=== PATIENT | female | born 1960 | race Caucasian/White ===

== ENCOUNTER → 2018-05-21 07:12 | Outpatient (CLI) | payer OTHER, SELFPAY ==
[2018-05-21 10:00] LABS: Absolute Lymphocyte Count 2.98 X10^3/ul (0.83-4.51); Absolute Neutrophil Count 2.7 X10^3/uL (2.0-7.7); Basophil# 0.04 X10^3/uL; Basophil% 0.6 % (0-1); Eosinophil# 0.26 X10^3/uL; Hemoglobin 14.3 g/dl (12.0-15.0); Lymphocyte # 2.98 X10^3/ul (4.0); Lymphocyte % 45.6 % (19-41); Mean Corp Hgb Conc 33.3 g/gl (32-36); Mean Corpuscular Hgb 30.2 pg (27.0-32.0); Mean Corpuscular Volume 90.7 fL (81-99); Mean Platelet Vol. 9.5 fl (6.2-12.0); Monocyte# 0.53 X10^3/uL; Monocyte% 8.1 % (0-10); Neutrophil # 2.73 X10^3/uL (2.7-7.7); Neutrophil % 41.7 % (47-70); POSITIVE COUNT NO; POSITIVE DIFFERENTIAL NO; POSITIVE MORPHOLOGY NO; Platelet Count 250 K/mm3 (150-450); RBC Distribution Width CV 12.7 % (11.6-14.6); RBC Distribution Width SD 42.1 fl (35.1-43.9); Red Blood Count 4.74 M/mm3 (4.2-5.4); White Blood Count 6.5 K/mm3 (4.4-11.0)
[2018-05-21 10:29] LABS: ALB/GLOB Ratio 0.8 RATIO (0.9-2.4); AST(SGOT) 21 U/L (15-37); Alanine Aminotransfer ALT/SGPT 28 U/L (13-56); Albumin, Serum 3.3 g/dL (3.2-5.0); Alkaline Phosphatase 42 U/L (45-117); Anion Gap 11 (5-15); BUN 17 mg/dL (7-18); Calcium,Total 9.1 mg/dL (8.5-10.1); Chloride 102 mmol/L (98-107); Cholesterol 182 mg/dL (200); Creatinine, Serum 0.95 mg/dL (0.55-1.02); EST Glomerular Filtration Rate 65 mL/min (>60); Est Glom Filt Rate - Afr Amer 79 mL/min (>60); Globulin 4.1 g/dL (2.2-4.2); Glucose 106 mg/dL (74-106); High Density Lipoprotein 36 mg/dL; Potassium 3.6 mmol/L (3.5-5.1); Protein, Total 7.4 g/dL (6.4-8.2); Sodium Level 140 mmol/L (136-145); Thyroid Stim Hormone (TSH) 2.51 uIU/mL (0.358-3.74); Triglycerides 277 mg/dL; Very Low Density Lipoprotein 55 mg/dL (5-40)
[2018-05-21 10:40] LABS: Microalbumin:Creatinine Ratio 8.7 mg/g CRE (<30 mg/g CRE)
[2018-05-21 12:44] LABS: Vitamin B12 512 pg/mL (211-911); Vitamin D,25 Hydroxy 45.7 ng/mL (29.95-100.01)
== END ==
PROVIDERS: Family Provider Family Medicine; PCP Family Medicine; Visit Provider Family Medicine
DX: E11.9 Type 2 diabetes mellitus without complications (principal); I10 Essential (primary) hypertension; E55.9 Vitamin D deficiency, unspecified; R53.83 Other fatigue
CPT/HCPCS: 36415; 80053; 80061; 82043; 82306; 82570; 82607; 83036; 84443; 85025

== ENCOUNTER → 2019-02-01 12:24 | Outpatient (CLI) | payer OTHER, SELFPAY ==
[2019-02-01 11:33] VITALS: BMI 35.6
--- NOTE | 2019-02-01 13:04 | RAD_ITS ---
STUDY: X-RAY - LEFT FOOT CLINICAL: Female, 59 years old. Pain in the heel. TECHNIQUE: 3 view(s) of the foot. COMPARISON: None. FINDINGS: Normal talus, calcaneus, and tarsal bones. Normal visualized subtalar, talonavicular, calcaneocuboid, tarsal and tarsometatarsal articulations. Normal metatarsi. Normal metatarsophalangeal joint of the great toe. Normal tibial and fibular sesamoid bones. Normal interphalangeal joint of the great toe. Normal phalanges of the great toe. Normal second through fifth metatarsophalangeal joints. Normal interphalangeal joints and phalanges of the lesser toes. The soft tissue structures are unremarkable. There is no demonstrated fracture. RAD/Foot min 3 Views IMPRESSION: Normal x-ray examination of the foot. No calcaneal spur. Electronically Signed: Maxx Nunez MD at 15:45 EDT , Service support ,
--- NOTE | 2019-02-01 13:48 | BI_ITS ---
MAMMOGRAPHY - BILATERAL SCREENING 3-D DRE SYNTHESIS REASON FOR EXAM: Female, 59 years old. Bilateral Screening 3-D tomosynthesis PERTINENT HISTORY: No significant family history. TECHNIQUE: 2-D mammograms and 3-D Dre synthesis of the breast (s) were performed. CAD was performed. COMPARISON: September 16, 2017, August 29, 2016 FINDINGS: The breast composition is almost entirely fat. Scattered benign calcifications are stable. No dense spiculated masses or suspicious microcalcifications are identified. No architectural distortion is identified. There is no skin thickening or retraction. There has been no significant change since the prior study. BI/SCREENING MAMM (CAD), BILAT IMPRESSION: No mammographic signs of malignancy. Routine yearly mammograms recommended. ASSESSMENT CATEGORY: BIRADS Category 2: Benign. A letter regarding these results will be sent to the patient by the facility within 30 days. FOLLOW UP RECOMMENDATION: Yearly follow up mammogram recommended. (A) Approximately 10% of breast cancers are not detected by mammography. A normal mammogram should not delay biopsy of a clinically suspicious abnormality. Electronically Signed: Hunter Cabrera MD at 12:41 EDT , Service support ,
[2019-02-07 03:06] LABS: Banana <0.10 kU/L (Class 0); Celery <0.10 kU/L (Class 0); Cheddar Cheese <0.10 kU/L (Class 0); Lettuce <0.10 kU/L (Class 0); Peach <0.10 kU/L (Class 0)
[2019-02-07 11:09] LABS: Lactalbumin, Alpha <0.10 kU/L (Class 0); Turkey <0.10 kU/L (Class 0)
[2019-02-09 17:38] LABS: Almond <0.10 kU/L (Class 0); Barley, Whole Grain <0.10 kU/L (Class 0); Beef <0.10 kU/L (Class 0); Carrot <0.10 kU/L (Class 0); Casein <0.10 kU/L (Class 0); Cashew <0.10 kU/L (Class 0); Chicken <0.10 kU/L (Class 0); Chocolate <0.10 kU/L (Class 0); Clam <0.10 kU/L (Class 0); Codfish <0.10 kU/L (Class 0); Corn <0.10 kU/L (Class 0); Crab <0.10 kU/L (Class 0); Egg, White <0.10 kU/L (Class 0); Egg, Whole <0.10 kU/L (Class 0); Egg, Yolk <0.10 kU/L (Class 0); Garlic <0.10 kU/L (Class 0); Gluten <0.10 kU/L (Class 0); Hazelnut/Filbert <0.10 kU/L (Class 0); Lobster <0.10 kU/L (Class 0); Milk (Cow) <0.10 kU/L (Class 0); Oat <0.10 kU/L (Class 0); Onion <0.10 kU/L (Class 0); Orange <0.10 kU/L (Class 0); Pea <0.10 kU/L (Class 0); Pecan <0.10 kU/L (Class 0); Pork <0.10 kU/L (Class 0); Potato, White <0.10 kU/L (Class 0); Rice <0.10 kU/L (Class 0); Rye <0.10 kU/L (Class 0); Salmon <0.10 kU/L (Class 0); Shrimp <0.10 kU/L (Class 0); Soybean <0.10 kU/L (Class 0); Strawberry <0.10 kU/L (Class 0); Tomato <0.10 kU/L (Class 0); Tuna <0.10 kU/L (Class 0); Walnut, (Food) <0.10 kU/L (Class 0); Wheat <0.10 kU/L (Class 0); Yeast <0.10 kU/L (Class 0)
[2019-02-11 17:09] LABS: Apple <0.10 kU/L (Class 0); Peanut <0.10 kU/L (Class 0)
== END ==
PROVIDERS: Family Provider Family Medicine; PCP Family Medicine; Referring Provider Obstetrics & Gynecology; Visit Provider Obstetrics & Gynecology
DX: Z12.31 Encounter for screening mammogram for malignant neoplasm of breast (principal); Z91.018 Allergy to other foods; M79.673 Pain in unspecified foot
CPT/HCPCS: 36415; 73630; 77063; 77067; 86003

== ENCOUNTER → 2020-03-27 16:02 | Outpatient (CLI) | payer OTHER, SELFPAY ==
[2019-02-01 11:33] VITALS: BMI 35.6
[2020-03-27 17:29] LABS: Absolute Lymphocyte Count 3.67 X10^3/uL (0.83-4.51); Absolute Neutrophil Count 2.8 X10^3/uL (2.0-7.7); Basophil# 0.07 X10^3/uL; Basophil% 0.9 % (0-1); Eosinophil# 0.22 X10^3/uL; Eosinophils% 2.9 % (0-5); Hematocrit 41.4 % (37-47); Hemoglobin A1c 7.2 % (4.2-6.3); Lymphocyte # 3.67 X10^3/ul (4.0); Lymphocyte % 48.1 % (19-41); Mean Corp Hgb Conc 33.8 g/dL (32-36); Mean Corpuscular Hgb 30.3 pg (27.0-32.0); Mean Corpuscular Volume 89.6 fL (81-99); Mean Platelet Vol. 10.5 fl (6.2-12.0); Monocyte# 0.83 X10^3/uL; Monocyte% 10.9 % (0-10); NRBC Flagged by Analyzer 0 % (0-5); Neutrophil # 2.81 X10^3/uL (2.7-7.7); Neutrophil % 36.8 % (47-70); Platelet Count 234 K/mm3 (150-450); RBC Distribution Width CV 12.7 % (11.6-14.6); RBC Distribution Width SD 41.1 fl (35.1-43.9); Red Blood Count 4.62 M/mm3 (4.2-5.4); White Blood Count 7.6 K/mm3 (4.4-11.0)
[2020-03-27 18:20] LABS: Vitamin D,25 Hydroxy 65.9 ng/mL
[2020-03-27 18:34] LABS: ALB/GLOB Ratio 0.9 RATIO (0.9-2.4); AST(SGOT) 21 U/L (15-37); Alanine Aminotransfer ALT/SGPT 35 U/L (13-56); Albumin, Serum 3.5 g/dL (3.2-5.0); Alkaline Phosphatase 45 U/L (45-117); Anion Gap 9 (5-15); BUN 22 mg/dL (7-18); BUN/Creat Ratio 19.3 RATIO (10-20); Calcium,Total 9.7 mg/dL (8.5-10.1); Chloride 100 mmol/L (98-107); Creatinine, Serum 1.14 mg/dL (0.55-1.02); EST Glomerular Filtration Rate 52 mL/min (>60); Est Glom Filt Rate - Afr Amer 63 mL/min (>60); Globulin 4.1 g/dL (2.2-4.2); Glucose 152 mg/dL (74-106); Potassium 3.5 mmol/L (3.5-5.1); Protein, Total 7.6 g/dL (6.4-8.2); Sodium Level 137 mmol/L (136-145)
[2020-03-30 00:41] LABS: SAR-COV-2 IGG ANTIBODY Negative (Negative)
== END ==
PROVIDERS: PCP Family Medicine; Visit Provider Family Medicine
DX: Z00.00 Encounter for general adult medical examination without abnormal findings (principal); Z20.828 Contact with and (suspected) exposure to other viral communicable diseases; E11.9 Type 2 diabetes mellitus without complications; E55.9 Vitamin D deficiency, unspecified
CPT/HCPCS: 36415; 80053; 82306; 83036; 85025; 86769

== ENCOUNTER → 2021-03-15 07:35 | Outpatient (CLI) | payer OTHER, SELFPAY ==
[2019-02-01 11:33] VITALS: BMI 35.6
[2021-03-15 10:03] LABS: Absolute Lymphocyte Count 3.15 X10^3/uL (0.83-4.51); Basophil# 0.06 X10^3/uL; Basophil% 0.9 % (0-1); Eosinophil# 0.18 X10^3/uL; Eosinophils% 2.6 % (0-5); Hematocrit 43.8 % (37-47); Hemoglobin 14.1 g/dL (12.0-15.0); Lymphocyte # 3.15 X10^3/ul (0.83-4.51); Lymphocyte % 44.7 % (19-41); Mean Corp Hgb Conc 32.2 g/dL (32-36); Mean Corpuscular Hgb 29.9 pg (27.0-32.0); Mean Platelet Vol. 9.9 fl (6.2-12.0); Monocyte# 0.61 X10^3/uL; Monocyte% 8.7 % (0-10); NRBC Flagged by Analyzer 0 % (0-5); Neutrophil # 3.03 X10^3/uL (2.7-7.7); Neutrophil % 42.8 % (47-70); Platelet Count 255 K/mm3 (150-450); RBC Distribution Width CV 12.5 % (11.6-14.6); RBC Distribution Width SD 42.5 fl (35.1-43.9); Red Blood Count 4.71 M/mm3 (4.2-5.4); White Blood Count 7.1 K/mm3 (4.4-11.0)
[2021-03-15 10:23] LABS: ALB/GLOB Ratio 0.8 RATIO (0.9-2.4); AST(SGOT) 32 U/L (15-37); Alanine Aminotransfer ALT/SGPT 43 U/L (13-56); Albumin, Serum 3.4 g/dL (3.2-5.0); Alkaline Phosphatase 42 U/L (45-117); Anion Gap 5 (5-15); BUN 19 mg/dL (7-18); BUN/Creat Ratio 19.4 RATIO (10-20); Calcium,Total 9.2 mg/dL (8.5-10.1); Chloride 103 mmol/L (98-107); Cholesterol 199 mg/dL (200); Creatinine, Serum 0.98 mg/dL (0.55-1.02); EST Glomerular Filtration Rate 62 mL/min (>60); Est Glom Filt Rate - Afr Amer 75 mL/min (>60); Glucose 137 mg/dL (74-106); High Density Lipoprotein 40 mg/dL; Potassium 3.7 mmol/L (3.5-5.1); Protein, Total 7.4 g/dL (6.4-8.2); Sodium Level 136 mmol/L (136-145); Triglycerides 205 mg/dL; Very Low Density Lipoprotein 41 mg/dL (5-40)
[2021-03-15 10:26] LABS: Hemoglobin A1c 6.8 % (3.8-5.6); Vitamin D,25 Hydroxy 67.4 ng/mL
[2021-03-15 10:30] LABS: Microalbumin,Random Urine 10.2 mg/L (NO RANGE EST.); Microalbumin:Creatinine Ratio 10.2 mg/g CRE (<30 mg/g CRE)
== END ==
PROVIDERS: PCP Family Medicine; Referring Provider Family Medicine; Visit Provider Family Medicine
DX: Z00.00 Encounter for general adult medical examination without abnormal findings (principal); E11.9 Type 2 diabetes mellitus without complications; I10 Essential (primary) hypertension; E55.9 Vitamin D deficiency, unspecified
CPT/HCPCS: 36415; 80053; 80061; 82043; 82306; 82570; 83036; 85025

== ENCOUNTER → 2021-08-05 13:31 | Outpatient (CLI) | payer OTHER, SELFPAY ==
--- NOTE | 2021-08-05 13:36 | RAD_ITS ---
STUDY: X-RAY - LEFT SHOULDER REASON FOR EXAM: Left shoulder pain and limited range of motion, left shoulder/humeral injury a few weeks ago. TECHNIQUE: 4 view(s) of the shoulder. COMPARISON: None. FINDINGS: Normal glenohumeral articulation. Normal acromioclavicular joint. Normal acromion. Normal humeral head and visualized proximal humerus. The soft tissue structures are unremarkable. Normal visualized pulmonary apex. RAD/Shoulder min 2 Views IMPRESSION: Unremarkable x-ray examination of the left shoulder. Electronically Signed: Jerald Carrasco MD at 14:08 EDT Tel , Service support ,
== END ==
PROVIDERS: PCP Family Medicine; Referring Provider Family Medicine; Visit Provider Family Medicine
DX: M25.512 Pain in left shoulder (principal)
CPT/HCPCS: 73030

== ENCOUNTER → 2021-09-19 12:48 | Outpatient (CLI) | payer OTHER, SELFPAY ==
[2019-02-01 11:33] VITALS: BMI 35.6
--- NOTE | 2021-09-19 12:50 | BI_ITS ---
MAMMOGRAPHY - BILATERAL SCREENING REASON FOR EXAM: Female, 61 years old. Routine annual screening examination. PERTINENT HISTORY: Non-contributory. TECHNIQUE: Digital bilateral breast dre (3D mammographic acquisition) in the CC and MLO projections. 2-D mediolateral oblique (MLO) and craniocaudad (CC) views of both breasts were obtained. CAD: Full Field Digital Mammography with Computer Added Detection was performed. COMPARISON: Comparison is made with prior examination of 02/01/2019 and 09/16/2017. FINDINGS: Breast Composition: The breasts are almost entirely fatty. There are no dominant masses or suspicious calcifications. Stable scattered bilateral microcalcifications. No focal cluster is seen. No other significant abnormalities are identified. There has been no significant change since the prior study. BI/SCRN MAMM (CAD)W/DRE BILAT IMPRESSION: Stable bilateral screening mammogram. Yearly follow-up mammogram recommended. (A) ASSESSMENT CATEGORY: BIRADS Category 2: Benign. A letter regarding these results will be sent to the patient by the facility within 30 days. Approximately 10% of breast cancers are not detected by mammography. A normal mammogram should not delay biopsy of a clinically suspicious abnormality. [id number] Electronically Signed: Srikanth Tolentino MD at 14:11 EDT , Service support ,
== END ==
PROVIDERS: PCP Family Medicine; Referring Provider Obstetrics & Gynecology; Visit Provider Obstetrics & Gynecology
DX: Z12.31 Encounter for screening mammogram for malignant neoplasm of breast (principal)
CPT/HCPCS: 77063; 77067

== ENCOUNTER → 2022-03-26 | Outpatient (CLI) | payer OTHER, SELFPAY ==
[2022-03-26 10:13] LABS: Absolute Lymphocyte Count 2.99 X10^3/uL (0.83-4.51); Absolute Neutrophil Count 3.1 X10^3/uL (2.0-7.7); Basophil# 0.08 X10^3/uL; Basophil% 1.1 % (0-1); Eosinophil# 0.23 X10^3/uL; Eosinophils% 3.2 % (0-5); Hematocrit 42.6 % (37-47); Hemoglobin 14.2 g/dL (12.0-15.0); Lymphocyte # 2.99 X10^3/ul (0.83-4.51); Lymphocyte % 42.1 % (19-41); Mean Corp Hgb Conc 33.3 g/dL (32-36); Mean Corpuscular Hgb 30.5 pg (27.0-32.0); Mean Corpuscular Volume 91.6 fL (81-99); Mean Platelet Vol. 9.6 fl (6.2-12.0); Monocyte# 0.67 X10^3/uL; Monocyte% 9.4 % (0-10); NRBC Flagged by Analyzer 0 % (0-5); Neutrophil % 43.6 % (47-70); Platelet Count 265 K/mm3 (150-450); RBC Distribution Width CV 12.5 % (11.6-14.6); RBC Distribution Width SD 41.8 fl (35.1-43.9); Red Blood Count 4.65 M/mm3 (4.2-5.4); White Blood Count 7.1 K/mm3 (4.4-11.0)
[2022-03-26 10:27] LABS: Vitamin D,25 Hydroxy 57.6 ng/mL
[2022-03-26 10:30] LABS: Hemoglobin A1c 6.6 % (3.8-5.6)
[2022-03-26 10:35] LABS: Microalbumin,Random Urine 9.4 mg/L (NO RANGE EST.); Microalbumin:Creatinine Ratio 7.4 mg/g CRE (<30 mg/g CRE)
[2022-03-26 10:41] LABS: ALB/GLOB Ratio 0.9 RATIO (0.9-2.4); AST(SGOT) 28 U/L (15-37); Alanine Aminotransfer ALT/SGPT 42 U/L (13-56); Albumin, Serum 3.6 g/dL (3.2-5.0); Alkaline Phosphatase 39 U/L (45-117); Anion Gap 5 (5-15); BUN 19 mg/dL (7-18); BUN/Creat Ratio 16.7 RATIO (10-20); Calcium,Total 9.5 mg/dL (8.5-10.1); Chloride 103 mmol/L (98-107); Cholesterol 193 mg/dL (200); Creatinine, Serum 1.14 mg/dL (0.55-1.02); EST Glomerular Filtration Rate 52 mL/min (>60); Est Glom Filt Rate - Afr Amer 63 mL/min (>60); Glucose 140 mg/dL (74-106); High Density Lipoprotein 40 mg/dL; Potassium 3.8 mmol/L (3.5-5.1); Protein, Total 7.6 g/dL (6.4-8.2); Sodium Level 136 mmol/L (136-145); Triglycerides 202 mg/dL; Very Low Density Lipoprotein 40 mg/dL (5-40)
== END | disposition home or self-care (01) ==
LOC: MTLAB 08:57
PROVIDERS: PCP Family Medicine; Referring Provider Family Medicine; Visit Provider Family Medicine
DX: Z00.00 Encounter for general adult medical examination without abnormal findings (principal); E11.9 Type 2 diabetes mellitus without complications; E55.9 Vitamin D deficiency, unspecified
CPT/HCPCS: 36415; 80053; 80061; 82043; 82306; 82570; 83036; 85025

== ENCOUNTER → 2022-03-28 | Outpatient (CLI) | payer OTHER, SELFPAY ==
[2022-03-28 10:32] LABS: Thyroid Stim Hormone (TSH) 2.57 uIU/mL (0.358-3.74)
== END | disposition home or self-care (01) ==
LOC: MTLAB 09:54
PROVIDERS: PCP Family Medicine; Referring Provider Family Medicine; Visit Provider Family Medicine
DX: L65.9 Nonscarring hair loss, unspecified (principal)
CPT/HCPCS: 36415; 84439; 84443

== ENCOUNTER → 2023-03-02 | Outpatient (CLI) | payer OTHER, SELFPAY ==
[2023-03-02 10:20] LABS: Absolute Lymphocyte Count 2.97 X10^3/uL (0.83-4.51); Absolute Neutrophil Count 4.1 X10^3/uL (2.0-7.7); Basophil# 0.06 X10^3/uL; Basophil% 0.7 % (0-1); Eosinophils% 4.9 % (0-5); Hematocrit 40.7 % (37-47); Hemoglobin 13.1 g/dL (12.0-15.0); Lymphocyte # 2.97 X10^3/ul (0.83-4.51); Lymphocyte % 36.1 % (19-41); Mean Corp Hgb Conc 32.2 g/dL (32-36); Mean Corpuscular Hgb 29.8 pg (27.0-32.0); Mean Corpuscular Volume 92.7 fL (81-99); Mean Platelet Vol. 9.6 fl (6.2-12.0); Monocyte# 0.65 X10^3/uL; Monocyte% 7.9 % (0-10); NRBC Flagged by Analyzer 0 % (0-5); Neutrophil % 49.9 % (47-70); Platelet Count 246 K/mm3 (150-450); RBC Distribution Width CV 13.1 % (11.6-14.6); RBC Distribution Width SD 44.2 fl (35.1-43.9); Red Blood Count 4.39 M/mm3 (4.2-5.4); White Blood Count 8.2 K/mm3 (4.4-11.0)
[2023-03-02 10:24] LABS: ALB/GLOB Ratio 0.8 RATIO (0.9-2.4); AST(SGOT) 23 U/L (15-37); Alanine Aminotransfer ALT/SGPT 32 U/L (13-56); Albumin, Serum 3.2 g/dL (3.2-5.0); Alkaline Phosphatase 43 U/L (45-117); Anion Gap 5 (5-15); BUN 20 mg/dL (7-18); Calcium,Total 9.4 mg/dL (8.5-10.1); Chloride 104 mmol/L (98-107); Cholesterol 183 mg/dL (200); Creatinine, Serum 1.11 mg/dL (0.55-1.02); EST Glomerular Filtration Rate 53 mL/min (>60); Est Glom Filt Rate - Afr Amer 64 mL/min (>60); Globulin 4.1 g/dL (2.2-4.2); Glucose 168 mg/dL (74-106); High Density Lipoprotein 34 mg/dL; Potassium 3.6 mmol/L (3.5-5.1); Protein, Total 7.3 g/dL (6.4-8.2); Sodium Level 136 mmol/L (136-145); Triglycerides 225 mg/dL; Very Low Density Lipoprotein 45 mg/dL (5-40)
[2023-03-02 10:25] LABS: Vitamin D,25 Hydroxy 75.3 ng/mL
[2023-03-02 10:28] LABS: Hemoglobin A1c 6.8 % (3.8-5.6)
[2023-03-02 10:41] LABS: Microalbumin:Creatinine Ratio 6.2 mg/g CRE (<30 mg/g CRE)
== END | disposition home or self-care (01) ==
LOC: MTLAB 07:34
PROVIDERS: PCP Family Medicine; Referring Provider Family Medicine; Visit Provider Family Medicine
DX: Z00.00 Encounter for general adult medical examination without abnormal findings (principal); E11.9 Type 2 diabetes mellitus without complications; I10 Essential (primary) hypertension; E55.9 Vitamin D deficiency, unspecified
CPT/HCPCS: 36415; 80053; 80061; 82043; 82306; 82570; 83036; 85025

== ENCOUNTER → 2023-04-29 | Outpatient (CLI) | payer OTHER, SELFPAY ==
--- NOTE | 2023-04-29 08:03 | BI_ITS ---
MAMMOGRAPHY - BILATERAL SCREENING REASON FOR EXAM: Female, 63 years old. Routine annual screening examination. PERTINENT HISTORY: Non-contributory. TECHNIQUE: Digital bilateral breast dre (3D mammographic acquisition) in the CC and MLO projections. 2-D mediolateral oblique (MLO) and craniocaudad (CC) views of both breasts were obtained. CAD: Full Field Digital Mammography with Computer Added Detection was performed. COMPARISON: Comparison is made with prior study dated September 19, 2021 and February 01, 2019. FINDINGS: Breast Composition: The breasts are almost entirely fatty. There are no dominant masses or suspicious calcifications. Stable scattered bilateral microcalcifications. No other significant abnormalities are identified. There has been no significant change since the prior study. BI/SCRN MAMM (CAD)W/DRE BILAT IMPRESSION: Stable bilateral screening mammogram. Yearly follow-up mammogram recommended. (A) ASSESSMENT CATEGORY: BIRADS Category 2: Benign. A letter regarding these results will be sent to the patient by the facility within 30 days. Approximately 10% of breast cancers are not detected by mammography. A normal mammogram should not delay biopsy of a clinically suspicious abnormality. [id number] Electronically Signed: Srikanth Tolentino MD at 9:51 EDT ,
== END | disposition home or self-care (01) ==
LOC: OPBI 08:02
PROVIDERS: PCP Family Medicine; Referring Provider Obstetrics & Gynecology; Visit Provider Obstetrics & Gynecology
DX: Z12.31 Encounter for screening mammogram for malignant neoplasm of breast (principal)
CPT/HCPCS: 77063; 77067

== ENCOUNTER → 2023-05-23 | Outpatient (CLI) | payer OTHER, SELFPAY ==
--- NOTE | 2023-05-23 08:13 | MRI_ITS ---
STUDY: MRI RIGHT KNEE REASON FOR EXAM: Female, 63 years old. pain, rule out meniscus tear, osteoarthritis rt knee TECHNIQUE: Standardized fat and water weighted pulse sequences were obtained in all 3 orthogonal planes. COMPARISON: X-ray of the right knee dated May 11, 2023 FINDINGS: A moderate-sized radial tear of the free edge of the body of medial meniscus is present. Mild meniscal irregularity and intrasubstance degenerative signal is present in the posterior horn. The anterior horn is normal. There is full-thickness loss of cartilage on both sides of the medial compartment with mild to moderate associated subchondral reactive edema in both the medial femoral condyle and tibial plateau. There is mild osteoarthritic spur formation of the medial knee compartment. Mild to moderate subcutaneous edema is present anterior aspect of the knee joint. A moderate-sized partial tear of the popliteus muscle is present musculotendinous junction, measuring 2 cm in diameter, but with the popliteus tendon remaining intact. Normal medial collateral ligamentous complex (MCL). Normal distal semimembranosus, gracilis and semitendinosus tendons. Normal lateral meniscus. Normal hyaline cartilage of the lateral femorotibial compartment. Normal lateral femoral condyle and tibial plateau. Normal proximal tibiofibular articulation. Normal lateral collateral (fibular) ligament. Normal popliteus tendon. Normal biceps femoris tendon. Normal anterior cruciate ligament (ACL). Normal posterior cruciate ligament (PCL). Normal congruent patellofemoral articulation. There is diffuse, greater than 50% thickness articular cartilage loss of the patellofemoral compartment. Normal medial and lateral patellar retinaculum. Normal quadriceps tendon. Normal patellar tendon. Normal Hoffa''s fat pad. A small knee joint effusion is present. A small Kramer''s cyst is also visualized. The soft tissues are unremarkable. The otherwise visualized osseous structures are unremarkable. MRI/Lower Ext Joint Only (Routine) IMPRESSION: 1. Moderate-sized radial tearing of the free edge of the body of the medial meniscus 2. Full-thickness loss of cartilage and mild to moderate reactive edema on both sides of the medial compartment Electronically Signed: Shaheen Lozada MD at 13:55 EDT ,
== END | disposition home or self-care (01) ==
PROVIDERS: PCP Family Medicine; Referring Provider Orthopaedic Surgery Sports Medicine; Visit Provider Orthopaedic Surgery Sports Medicine
DX: M17.11 Unilateral primary osteoarthritis, right knee (principal); M25.561 Pain in right knee
CPT/HCPCS: 73721

== ENCOUNTER 2023-07-17 11:30 | Outpatient (RCR) | payer OTHER, SELFPAY ==
--- NOTE | 2023-05-20 17:06 | HP.PTEVAL ---
Patient's Visit Information Visit Information Visit Information: LORENA CHIU is a 63 year old F referred to Physical Therapy by Dr. Ghulam Pan MD with a diagnosis of UNILATERAL PRIMARY OSTEOARHTRITIS ,RIGHT KNEE ,RIGHT PAIN KNEE. Date of Evaluation: 05/20/23 Physical Therapist: Azam García, PT, Cert MDT, OCS Visit Plan Frequency: 2x /Week Duration: 4 Weeks Plan: PT INTERVENTIONS AQUATIC THERAPY GARDED ROM /FLEXABILITY ,STRENGTHENING QUADS/HAMS/HIP AND GAIT TRAINING Subjective Subjective: This 63 y/o female presents to physical therapy with right knee pain and unilateral osteoarthritis. Patient injury January following dads electric cart walking fast. Patient had more pain right knee and had edema lateral knee. Patient tried to manage pain on own . Pain persisted then seen DR x-rays mod DJD medial compartment. Initially , seen DR zamora. Pain located global described pain as ache and some sharp pain. Patient aggravating walking/standing < 5min ,unable to squat /kneel ,and difficulty with steps stair one steps at time Patient pain became so intense needed to uses walker rollator. No medication or cortisone injection. Denies paresthesia/tingling. Patient stated it catches . Sleeping okay. Patient pain affects QOL and working as [employer]. . Patient goals no pain. MRI scheduled Thursday SOCIAL: VOCATION: Pain Right Knee: Pain Intensity (Out of 10): 5 Pain Intensity Range: 10 Objective Objective: POSTURE: mild forward posture GAIT: antalgic gait right leg with stance time with decrease stance and swing phase slow aron EDEMA: joint line 40.5 cm AROM: 5-110 degrees supine knee flexion STAIRS: one step at time with rail MMT:( peak force) quads 16.8 ,hamstrings 17.9 ,hip flexion 19.2, hip abduction 16.3 ankle 4.6 FLEXABLITY: hamstrings min tight Special Tests R Knee Tyree - Meniscus: Positive R Knee Tadeo - ACL: Negative R Knee Anterior Drawer - ACL: Negative R Knee Valgus - MCL: Negative R Knee Varus - LCL: Negative R Knee Patellar Apprehension - PFS: Positive Comments: + OP with flexion/extension Balance/Special Test Scores Lower Extremity Functional Score: 34 Goals Goal 1:: Patient to be I with Aquatic therapy Goal Time Frame: 4-6 Weeks Goal 2:: Patient to normalize gait with less antalgic gait 80%. Goal Time Frame: 4-6 Weeks Goal 3:: Patient AROM 0-120 supine flexion with less to improve stairs Goal Time Frame: 4-6 Weeks Goal 4:: Patient to improve peak force quads/hams by 10 # to improve gait and function. Goal Time Frame: 4-6 Weeks Goal 5:: Patient to demonstrate 50% improvement with less pain Goal Time Frame: 4-6 Weeks Goal 6:: Patient to improve LFES score by by 10 points to improve QOL and function Goal Time Frame: 4-6 Weeks Rehabilitation Potential Physical Therapy Diagnosis: This patient has right knee pain ,edema ,decrease ROM ,weakness causes antalgic gait ,and stairs thus benefit from skilled PT Rehabilitation Potential: Good Anticipated Interventions Patient/Client Instruction: Educate patient on: Condition, Plan of Care and Risk Factors For the Purpose of:: To decrease pain, To increase ROM, To improve muscle performance and motor function, To increase tolerance to activity/condition/position, To improve ability of physical actions for home/community/work/leisure, To improve health of tissue, To decrease soft tissue restriction, To increase flexibility/ROM, To improve endurance, To improve balance and To improve tolerance to ADL's Therapeutic Exercise to Include: Strength training, Balance training, Flexibilty training, Passive ROM and Active ROM Comment: QUADS/HAMS/HIP For the Purpose of:: To decrease pain, To increase ROM, To improve muscle performance and motor function, To improve ability to perform ADL's, To increase tolerance to activity/condition/position, To improve ability of physical actions for home/community/work/leisure, To improve gait and locomotor functions, To improve health of tissue, To decrease soft tissue restriction, To increase flexibility/ROM and To improve endurance Text: Thank you for the opportunity to evaluate your patient. For Medicare and Medicare HMO plans, please review the plan of care and approve it. It will need to be FAXED BACK to us at [phone] for Medicare purposes. For Medicare only, by signing this I certify the plan of care. Please let me know if there are questions or concerns regarding this plan of care. Physician Signature: Date:
--- NOTE | 2023-07-17 12:54 | HP.PTDCSUM ---
Discharge Summary D/C summary: It has been my pleasure to treat LORENA CHIU referred by Dr. Ghulam Pan MD, with the diagnosis of UNILATERAL PRIMARY OSTEOARHTRITIS ,RIGHT KNEE ,RIGHT PAIN KNEE for a total of 12 visit(s). Discharge Date: Please see the following information for a summary of their discharge status. Subjective Subjective: Plan to continue Aquatics Right know 1 mile goal is 2 mile Pain Right Knee: Pain Intensity (Out of 10): 2 Overall Improvement % Improvement: 85 Objective Objective/Function: POSTURE: mild forward posture GAIT: reciprocal pattern EDEMA: joint line 39.6 cm AROM: 3-125 degrees supine knee flexion STAIRS: alternating steps ascend alternating ,descending MMT:( peak force) quads 39.1 ,hamstrings 35.2 ,hip flexion 19.2, hip abduction 44.4 ankle 4/5 FLEXABLITY: hamstrings min tight Goals Goal 1:: Patient to be I with Aquatic therapy Goal Progress: Goal Met Goal 2:: Patient to normalize gait with less antalgic gait 80%. Goal Progress: Goal Met Goal 3:: Patient AROM 0-120 supine flexion with less to improve stairs Goal Progress: Goal Met Goal 4:: Patient to improve peak force quads/hams by 10 # to improve gait and function. Goal Progress: Goal Met Goal 5:: Patient to demonstrate 50% improvement with less pain Goal Progress: Goal Met Goal 6:: Patient to improve LFES score by by 10 points to improve QOL and function Goal Progress: Goal Met Plan Plan: D/C D/C Information d/c sentence: If there are questions or concerns regarding this patient's physical therapy, please feel free to call me at [phone]. Thank you for the referral of this patient. Sincerely, Azam García, PT, Cert MDT, OCS Balance/Gait/Functional tests Balance/Special Test Scores Lower Extremity Functional Score: 51 Improvement % Improvement: 85
== END 2023-07-17 19:00 | disposition home or self-care (01) ==
LOC: PT 11:30
PROVIDERS: PCP Family Medicine; Referring Provider Orthopaedic Surgery Sports Medicine; Visit Provider Orthopaedic Surgery Sports Medicine
DX: M17.11 Unilateral primary osteoarthritis, right knee (principal); M25.561 Pain in right knee
CPT/HCPCS: 97113; 97162; 97530

== ENCOUNTER → 2023-09-02 | Outpatient (CLI) | payer OTHER, SELFPAY ==
[2023-09-02 12:41] LABS: Absolute Lymphocyte Count 3.36 X10^3/uL (0.83-4.51); Absolute Neutrophil Count 4.1 X10^3/uL (2.0-7.7); Basophil# 0.07 X10^3/uL; Basophil% 0.8 % (0-1); Eosinophil# 0.21 X10^3/uL; Eosinophils% 2.5 % (0-5); Hematocrit 44.4 % (37-47); Hemoglobin 14.6 g/dL (12.0-15.0); Lymphocyte # 3.36 X10^3/ul (0.83-4.51); Lymphocyte % 39.4 % (19-41); Mean Corp Hgb Conc 32.9 g/dL (32-36); Mean Corpuscular Volume 91.4 fL (81-99); Mean Platelet Vol. 9.7 fl (6.2-12.0); Monocyte# 0.75 X10^3/uL; Monocyte% 8.8 % (0-10); NRBC Flagged by Analyzer 0 % (0-5); Platelet Count 280 K/mm3 (150-450); RBC Distribution Width SD 42.9 fl (35.1-43.9); Red Blood Count 4.86 M/mm3 (4.2-5.4); White Blood Count 8.5 K/mm3 (4.4-11.0)
[2023-09-02 13:50] LABS: ALB/GLOB Ratio 0.7 RATIO (0.9-2.4); AST(SGOT) 19 U/L (15-37); Alanine Aminotransfer ALT/SGPT 32 U/L (13-56); Albumin, Serum 3.3 g/dL (3.2-5.0); Alkaline Phosphatase 51 U/L (45-117); Anion Gap 8 (5-15); BUN 13 mg/dL (7-18); Calcium,Total 10.1 mg/dL (8.5-10.1); Chloride 99 mmol/L (98-107); Cholesterol 194 mg/dL (200); EST Glomerular Filtration Rate 60 mL/min (>60); Est Glom Filt Rate - Afr Amer 72 mL/min (>60); Globulin 4.5 g/dL (2.2-4.2); Glucose 121 mg/dL (74-106); High Density Lipoprotein 39 mg/dL; Potassium 3.5 mmol/L (3.5-5.1); Protein, Total 7.8 g/dL (6.4-8.2); Sodium Level 134 mmol/L (136-145); Thyroid Stim Hormone (TSH) 2.21 uIU/mL (0.358-3.74); Triglycerides 212 mg/dL; Very Low Density Lipoprotein 42 mg/dL (5-40)
[2023-09-02 14:37] LABS: Microalbumin,Random Urine < 5.0 mg/L (NO RANGE EST.)
[2023-09-02 18:08] LABS: Hemoglobin A1c 6.4 % (3.8-5.6)
== END | disposition home or self-care (01) ==
PROVIDERS: PCP Family Medicine; Referring Provider Family Medicine; Visit Provider Family Medicine
DX: Z00.00 Encounter for general adult medical examination without abnormal findings (principal); E11.9 Type 2 diabetes mellitus without complications
CPT/HCPCS: 36415; 80053; 80061; 82043; 82570; 83036; 84443; 85025

== ENCOUNTER → 2024-03-03 | Outpatient (CLI) | payer OTHER, SELFPAY ==
[2024-03-03 10:39] LABS: Hemoglobin A1c 6.2 % (3.8-5.6)
[2024-03-03 10:44] LABS: ALB/GLOB Ratio 0.8 RATIO (0.9-2.4); AST(SGOT) 28 U/L (15-37); Alanine Aminotransfer ALT/SGPT 31 U/L (13-56); Albumin, Serum 3.1 g/dL (3.2-5.0); Alkaline Phosphatase 43 U/L (45-117); Anion Gap 8 (5-15); BUN 18 mg/dL (7-18); BUN/Creat Ratio 17.6 RATIO (10-20); Calcium,Total 9.3 mg/dL (8.5-10.1); Chloride 103 mmol/L (98-107); Cholesterol 175 mg/dL (200); Creatinine, Serum 1.02 mg/dL (0.55-1.02); EST Glomerular Filtration Rate 58 mL/min (>60); Est Glom Filt Rate - Afr Amer 71 mL/min (>60); Glucose 141 mg/dL (74-106); High Density Lipoprotein 36 mg/dL; Potassium 3.8 mmol/L (3.5-5.1); Protein, Total 7.1 g/dL (6.4-8.2); Sodium Level 136 mmol/L (136-145); Triglycerides 192 mg/dL; Very Low Density Lipoprotein 38 mg/dL (5-40)
[2024-03-03 10:54] LABS: Microalbumin,Random Urine 6.7 mg/L (NO RANGE EST.); Microalbumin:Creatinine Ratio 4.8 mg/g CRE (<30 mg/g CRE)
== END | disposition home or self-care (01) ==
LOC: MTLAB 08:45
PROVIDERS: PCP Family Medicine; Referring Provider Family Medicine; Visit Provider Family Medicine
DX: E11.9 Type 2 diabetes mellitus without complications (principal); I10 Essential (primary) hypertension
CPT/HCPCS: 36415; 80053; 80061; 82043; 82570; 83036

== ENCOUNTER → 2024-03-04 | Outpatient (CLI) | payer OTHER, SELFPAY | END | disposition home or self-care (01) | LOC: LAB.FUTURE 13:10 | PROVIDERS: PCP Family Medicine; Visit Provider Family Medicine | DX: Z00.00 Encounter for general adult medical examination without abnormal findings (principal); E11.22 Type 2 diabetes mellitus with diabetic chronic kidney disease; N18.31 Chronic kidney disease, stage 3a; I12.9 Hypertensive chronic kidney disease with stage 1 through stage 4 chronic kidney disease, or unspecified chronic kidney disease; E55.9 Vitamin D deficiency, unspecified ==

== ENCOUNTER → 2024-09-01 | Outpatient (CLI) | payer OTHER, SELFPAY ==
--- NOTE | 2024-09-01 12:41 | BI_ITS ---
MAMMOGRAPHY - BILATERAL SCREENING 3-D TOMOSYNTHESIS REASON FOR EXAM: Female, 64 years old. screening mammogram PERTINENT HISTORY: No significant family history. TECHNIQUE: 2-D mammograms and 3-D Tomosynthesis of the breast (s) were performed. CAD was performed. COMPARISON: 04/29/2023 FINDINGS: The breast composition is composed of scattered fibroglandular density. Scattered benign calcifications are seen. No dense spiculated masses or suspicious microcalcifications are identified. No architectural distortion is identified. There is no skin thickening or retraction. There has been no significant change since the prior study. BI/SCRN MAMM (CAD)W/DRE BILAT IMPRESSION: No mammographic signs of malignancy. Routine yearly mammograms recommended. ASSESSMENT CATEGORY: BIRADS Category 1: Negative. A letter regarding these results will be sent to the patient by the facility within 30 days. FOLLOW UP RECOMMENDATION: Yearly follow up mammogram recommended. (A) Approximately 10% of breast cancers are not detected by mammography. A normal mammogram should not delay biopsy of a clinically suspicious abnormality. Electronically Signed: Paolo Perez MD at 13:29 EDT ,
== END | disposition home or self-care (01) ==
LOC: OPBI 12:41
PROVIDERS: PCP Family Medicine; Referring Provider Obstetrics & Gynecology; Visit Provider Obstetrics & Gynecology
DX: Z12.31 Encounter for screening mammogram for malignant neoplasm of breast (principal)
CPT/HCPCS: 77063; 77067

== ENCOUNTER → 2024-09-05 | Outpatient (CLI) | payer OTHER, SELFPAY ==
[2024-09-05 12:20] LABS: Absolute Neutrophil Count 3.6 X10^3/uL (2.0-7.7); Basophil# 0.08 X10^3/uL; Basophil% 1.1 % (0-1); Eosinophil# 0.21 X10^3/uL; Hematocrit 44.4 % (37-47); Hemoglobin 14.5 g/dL (12.0-15.0); Lymphocyte % 35.6 % (19-41); Mean Corp Hgb Conc 32.7 g/dL (32-36); Mean Corpuscular Hgb 29.9 pg (27.0-32.0); Mean Corpuscular Volume 91.5 fL (81-99); Monocyte# 0.64 X10^3/uL; Monocyte% 9.1 % (0-10); NRBC Flagged by Analyzer 0 % (0-5); Neutrophil # 3.57 X10^3/uL (2.7-7.7); Neutrophil % 50.8 % (47-70); Platelet Count 241 K/mm3 (150-450); RBC Distribution Width CV 12.8 % (11.6-14.6); RBC Distribution Width SD 43.2 fl (35.1-43.9); Red Blood Count 4.85 M/mm3 (4.2-5.4)
[2024-09-05 12:46] LABS: Vitamin D,25 Hydroxy 82.4 ng/mL
[2024-09-05 13:10] LABS: ALB/GLOB Ratio 0.9 RATIO (0.9-2.4); AST(SGOT) 26 U/L (15-37); Alanine Aminotransfer ALT/SGPT 32 U/L (13-56); Albumin, Serum 3.6 g/dL (3.2-5.0); Alkaline Phosphatase 49 U/L (45-117); Anion Gap 8 (5-15); BUN 14 mg/dL (7-18); Calcium,Total 10.4 mg/dL (8.5-10.1); Chloride 100 mmol/L (98-107); Cholesterol 226 mg/dL (200); Creatinine, Serum 1.08 mg/dL (0.55-1.02); EST Glomerular Filtration Rate 55 mL/min (>60); Est Glom Filt Rate - Afr Amer 66 mL/min (>60); Glucose 128 mg/dL (74-106); High Density Lipoprotein 36 mg/dL; Protein, Total 7.6 g/dL (6.4-8.2); Sodium Level 136 mmol/L (136-145); Triglycerides 265 mg/dL; Very Low Density Lipoprotein 53 mg/dL (5-40)
[2024-09-05 14:13] LABS: Microalbumin,Random Urine < 5.0 mg/L (NO RANGE EST.)
[2024-09-05 15:07] LABS: Hemoglobin A1c 6.5 % (3.8-5.6)
== END | disposition home or self-care (01) ==
LOC: BFHLAB 08:52
PROVIDERS: PCP Family Medicine; Referring Provider Family Medicine; Visit Provider Family Medicine
DX: Z00.00 Encounter for general adult medical examination without abnormal findings (principal); E11.22 Type 2 diabetes mellitus with diabetic chronic kidney disease; N18.31 Chronic kidney disease, stage 3a; I12.9 Hypertensive chronic kidney disease with stage 1 through stage 4 chronic kidney disease, or unspecified chronic kidney disease; E55.9 Vitamin D deficiency, unspecified
CPT/HCPCS: 36415; 80053; 80061; 82043; 82306; 82570; 83036; 85025

== ENCOUNTER → 2025-03-06 | Outpatient (CLI) | payer OTHER, SELFPAY ==
[2025-03-06 13:27] LABS: ALB/GLOB Ratio 1.2 RATIO (0.9-2.4); AST(SGOT) 27 U/L (<=31); Alanine Aminotransfer ALT/SGPT 26 U/L (<=34); Albumin, Serum 4.1 g/dL (3.4-4.8); Alkaline Phosphatase 46 U/L (35-104); Anion Gap 13 (5-15); BUN 14 mg/dL (4-19); BUN/Creat Ratio 14.1 RATIO (10-20); Calcium,Total 10.1 mg/dL (7.6-11.0); Carbon Dioxide 25.1 mmol/L (21.0-32.0); Chloride 97 mmol/L (98-108); Cholesterol 219 mg/dL (<=200); EST Glomerular Filtration Rate 63 (>60); Globulin 3.4 g/dL (2.2-4.2); Glucose 139 mg/dL (70-99); High Density Lipoprotein 38 mg/dL; Low Density Lipoprotein Calc. 136 mg/dL; Potassium 4.2 mmol/L (3.3-5.1); Protein, Total 7.5 g/dL (5.9-8.4); Sodium Level 135 mmol/L (133-145); Total Bilirubin 0.44 mg/dL (0.00-1.30); Triglycerides 224 mg/dL; Very Low Density Lipoprotein 45 mg/dL (5-40); Vitamin D,25 Hydroxy 75.2 ng/mL (30-100); cholesterol:hdl ratio screen 5.75
[2025-03-06 13:33] LABS: PTHIN 39 pg/mL (11-61)
== END | disposition home or self-care (01) ==
LOC: BFHLAB 08:55
PROVIDERS: PCP Family Medicine; Visit Provider Family Medicine
DX: E11.22 Type 2 diabetes mellitus with diabetic chronic kidney disease (principal); N18.31 Chronic kidney disease, stage 3a; E83.52 Hypercalcemia
CPT/HCPCS: 36415; 80053; 80061; 82306; 83970

== ENCOUNTER → 2025-09-08 | Outpatient (CLI) | payer OTHER, SELFPAY ==
--- NOTE | 2025-09-08 10:15 | BI_ITS ---
EXAM: SCRN MAMM (CAD)W/DRE BILAT DATE: 09/08/2025 CLINICAL HISTORY: F, Age 65 y/o , SCREEN FOR BREAST CANCER TECHNIQUE: Procedure Code: [id number] Modality: MG Procedure: SCRN MAMM (CAD)W/DRE BILAT 3-dimensional tomosynthesis and composite views of both breasts were obtained, using full field digital mammography. The [employer] computer-aided detection system was utilized in conjunction with the interpretation of this examination. COMPARISON: Prior exam(s) dated 09/01/2024, 04/29/2023. FINDINGS: TISSUE DENSITY: The breasts are almost entirely fatty. Bilateral Breast Mammographic Findings: Stable mammogram. Stable benign calcifications bilaterally. Stable parenchymal pattern. No suspicious masses, areas of developing architectural distortion, or suspicious calcifications. There has been no significant interval change. BI/SCRN MAMM (CAD)W/DRE BILAT IMPRESSION: 1. Stable mammogram. No mammographic evidence of malignancy. OVERALL FINAL ASSESSMENT BI-RADS 2: BENIGN RECOMMENDATION: Routine annual follow-up in 1 Year Additional Recommendation none A letter with findings and recommendations will be mailed to the patient. Reading Location: [facility]
== END | disposition home or self-care (01) ==
LOC: OPBI 09:58
PROVIDERS: PCP Family Medicine; Referring Provider Obstetrics & Gynecology; Visit Provider Obstetrics & Gynecology
DX: Z12.31 Encounter for screening mammogram for malignant neoplasm of breast (principal)
CPT/HCPCS: 77063; 77067

== ENCOUNTER 2025-09-14 11:49 | Inpatient (IN) | payer OTHER, SELFPAY ==
[2025-09-14] VITALS (16 sets, daily range): BP systolic 96–162; BP diastolic 54–81; PULSE 100–128; RESP 19–35; TEMP 36.8–37.7; O2SAT 92–100; BMI 34.3; BMI 35.5
--- NOTE | 2025-09-14 11:59 | EKG12_ITS ---
Test Reason : N/V/ABD PAINN
--- NOTE | 2025-09-14 11:59 | RAD_ITS ---
PROCEDURE: RAD/Chest PA and Lateral
--- NOTE | 2025-09-14 12:09 | CT_ITS ---
PROCEDURE: CT/Abdomen/Pelvis W IV Cont ONLY
--- NOTE | 2025-09-14 12:24 | EX.ED.GENINJ ---
HPI History of Present Illness Chief Complaint: Nausea/Vomiting Narrative Narrative: Patient is a 65-year-old female with past medical history of diabetes, hypertension who presents to the emergency department with a chief complaint of nausea vomiting not feeling well. She states that on Thursday they ate [place] and Thursday around 1 AM she woke up vomiting she states that she vomited multiple times until 9:30 AM Thursday morning. States that she has been sick since then with nausea vomiting states that her urine has a foul smell to it and notes that her glucose continues to rise. She denies any other recent sick contacts. [facility] Medical History Derangement of medial meniscus of right knee Osteoarthritis of right knee Right knee pain Knee pain Hypertension Diabetes Home Medications ?Medication ?Instructions ?Recorded ?Last Taken ?Type cholecalciferol (vitamin D3) 25 1,000 unit PO DAILY 02/01/19 Unknown History mcg (1,000 unit) capsule multivitamin,[id number] 1 tab PO DAILY 02/01/19 Unknown History (Complete Multivitamin tablet) vitamin B complex (B 1 tab PO DAILY 02/01/19 Unknown History Complex-Vitamin B12 tablet) losartan 100 1 tab PO DAILY 09/14/25 Unknown History mg-hydrochlorothiazide 25 mg tablet metformin 1,000 mg tablet 1,000 mg PO QHS 09/14/25 Unknown History metformin 500 mg tablet 500 mg PO DAILY blood sugar 09/14/25 Unknown History tirzepatide 7.5 mg/0.5 mL 7.5 mg subcut QWEEK 09/14/25 Unknown History subcutaneous pen injector (Mounjaro) Allergy/AdvReac Type Severity Reaction Status Date / Time Food Allergies: Uncoded Allergy Vomiting Verified 09/14/25 11:55 Family History Mother Multiple sclerosis Hypertension Diabetes Father Hypertension Heart disease Diabetes Brother Diabetes Grandmother Diabetes Sister Breast cancer Surgical History Hx of LASIK H/O knee surgery Cyst of bone of right foot History of [facility] Social History Smoking Status: Never smoker alcohol intake: never substance use type: does not use caffeine: No what type of physical activity do you participate in: walking and other details: aqua exercises frequency: 3-4 times per week seatbelt use: always do you feel safe at home: Yes additional social history: [employer] ROS ROS ED ROS Narrative Constitutional: Denies any fevers or chills Cardiovascular: Denies chest pain Respiratory: Denies coughing wheezing shortness of breath Abdomen: Complains of nausea and vomiting as noted above denies abdominal pain diarrhea : Complains urinary symptoms as noted above Neurological: Denies any numbness, weakness, tingling Musculoskeletal: Denies back pain Skin: Denies any rashes or lesions EXAM Physical Exam Narrative Exam Narrative: General: Patient was lying in bed rest comfortably did not appear to be in acute distress Head: Atraumatic, normocephalic Eyes: PERRL bilaterally, EOMI bilateral, no conjunctival injection noted Neck: Soft, supple, trachea midline Cardiovascular: Patient tachycardic with a regular rhythm Respiratory: Clear to auscultation bilaterally Abdomen: Patient has tenderness to palpation in the right lower quadrant no rebound or guarding on exam Extremities: +5/5 strength noted in the bilateral lower extremities Neurological: Patient following commands knew that she was at [facility] years 2024 Skin: Warm, dry, intact no rashes or lesions noted Const Vital Signs: 09/14/25 11:51 09/14/25 12:15 09/14/25 12:31 Temperature 99.6 F H Temperature Source Oral Pulse Rate 128 H Respiratory Rate 20 H Respiratory Effort Normal Non-Labored Respiratory Pattern Tachypnea Blood Pressure 162/74 H Blood Pressure Mean 103 Pulse Ox 97 Oxygen Delivery Method Room Air Room Air 09/14/25 12:54 09/14/25 13:00 09/14/25 13:57 Temperature 98.5 F 98.4 F 98.4 F Temperature Source Oral Oral Pulse Rate 109 H 106 H 107 H Respiratory Rate 28 H 22 H 33 H Respiratory Effort Respiratory Pattern Blood Pressure 118/76 113/72 120/71 Blood Pressure Mean 90 85 87 Pulse Ox 100 97 97 Oxygen Delivery Method Room Air Room Air 09/14/25 14:00 09/14/25 15:00 09/14/25 15:21 Temperature 98.3 F 99 F 100 F H Temperature Source Oral Oral Oral Pulse Rate 107 H 115 H 120 H Respiratory Rate 28 H 31 H 27 H Respiratory Effort Respiratory Pattern Blood Pressure 101/81 H 127/70 H 122/69 H Blood Pressure Mean 87 85 86 Pulse Ox 97 100 98 Oxygen Delivery Method Room Air Room Air Sepsis Attestation Sepsis Organ Dysfunction Criteria Present: Lactic Acid > 2 mmol/L MDM MDM MDM Narrative Medical decision making narrative: Patient is a 65-year-old female who presents to the emergency department the chief complaint of nausea vomiting. On the differential diagnose includes but not limited to DKA, HHS, UTI, pyelonephritis, appendicitis, viral gastroenteritis. Once workup is obtained reviewed she will be reevaluated. Patient be given 30 cc/kg bolus of IV fluids based on ideal body weight which will be 2500 mL which was ordered at 12:00 Patient CBC was significant for leukocytosis 27,000, hemoglobin is 15, plate count to be 191. Patient's INR normal at 1.1. Patient's venous blood gas reviewed showed pH 7.45. Patient sodium was low indicating hyponatremia 130, anion gap of 16, creatinine elevated 1.71 indicating FLORECITA. Patient's lactic acid elevated to 4.1, AST and ALT were 25 and 18 respectively. Patient beta-hydroxybutyrate elevated at 0.4 patient was given 15 unit subcutaneous insulin. Patient urinalysis showed evidence of infection with 500 leukocyte esterase 50-100 white cells with 3+ bacteria this was sent for culture. Patient CT ab pelvis was reviewed and concerning for pyelonephritis on the right side will add a another dose of Rocephin. Patient was given Rocephin at 1326. Patient was stated that she is nauseous she will be given Reglan. Patient will also be given a gram of Tylenol as she is starting to develop with fever as she is having chills. Will discuss case with hospitalist for admission for her UTI, pyelonephritis and early DKA. Discussed case with hospitalist Dr. Alonzo who accept patient for admission. Critical care time 37 minutes Lab Data Labs: Laboratory Results - last 24 hr 09/14/25 09/14/25 09/14/25 12:17 12:25 13:44 WBC 27.4 H RBC 4.91 Hgb 15.0 Hct 43.2 MCV 88.0 MCH 30.5 MCHC 34.7 RDW Std Deviation 41.2 RDW Coeff of Laine 12.7 Plt Count 191 MPV 9.7 Immature Gran % (Auto) 2.400 H Neut % (Auto) 83.9 H Lymph % (Auto) 4.6 L [place] % (Auto) 6.3 Eos % (Auto) 2.5 Baso % (Auto) 0.3 Absolute Neuts (auto) 23.0 H Absolute Lymphs (auto) 1.26 Nucleated RBC % 0 Differential Comment SCANNED PT 14.8 INR 1.1 APTT 23.2 L Sodium 130 L Potassium 4.1 Chloride 92 L Carbon Dioxide 22.1 Anion Gap 16 H BUN 24 H Creatinine 1.71 H Estim Creat Clear Calc 33.07 L Est GFR (MDRD) Non-Af 33 L BUN/Creatinine Ratio 14.1 Glucose 301 H Lactic Acid 4.1 H* Calcium 9.4 Total Bilirubin 0.94 AST 25 ALT 18 Alkaline Phosphatase 68 Total Protein 7.2 Albumin 3.7 Globulin 3.5 Albumin/Globulin Ratio 1.0 b-Hydroxybutyric mmol/L 0.4 H Urine Color Yellow Urine Clarity Sl. Cloudy Urine pH 6.0 Ur Specific [place] 1.025 Urine Protein 100 H Urine Glucose (UA) 50 H Urine Ketones Negative Urine Occult Blood 50 H Urine Nitrite Negative Urine Bilirubin Negative Urine Urobilinogen Normal Ur Leukocyte Esterase 500 H Urine RBC 0-5 SEEN Urine WBC 50-100 SEEN Ur Squamous Epith Cells 5-10 SEEN Urine Bacteria 3+ Urine Mucus 1+ POC Glucose 244 H ABG Data ABG results: ABG 09/14/25 12:47 Specimen Type LENI Sample Site Not entered VBG pH 7.45 H VBG pO2 40 VBG HCO3 22 VBG Total CO2 23 VBG O2 Sat (Calc) 78 H VBG Base Excess -2 L POC Mix VBG pCO2 Pt Tmp 32.1 L O2 Delivery Device Not entered Radiography Diagnostic Testing: Clinical Impression(s) from Imaging Studies Chest X-Ray 09/14/25 11:59 IMPRESSION: Mild degree of increased markings at the lung bases suggestive of linear atelectasis. Reading Location: [id number] Abdomen/Pelvis CT 09/14/25 12:09 IMPRESSION: Multiple layering gallstones. 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 There is evidence of right perinephric stranding as well as inferior to the right kidney. Right-sided pyelonephritis should be ruled out. There is no evidence of obstruction. Reading Location: [id number] Discharge Plan Dx/Rx/DC Orders Clinical Impression: Pyelonephritis, Hyperglycemia, Nausea & vomiting, Sepsis Disposition Disposition: Acute Care [facility]
[2025-09-14] MEDS: 0.9% Normal Saline (1000mL) 1,000 ML 999 ML IV ×3 (12:33→14:48)
[2025-09-14 12:51] LABS: SITE Not entered; VBG BASE EXCESS -2 mmol/L (-1.0-3.5); VBG PO2 40 mmHg (25-40); VBG SO2 78 % (50-70); VBG TCO2 23 mmol/L (23-33)
[2025-09-14 12:51] LABS: Hematocrit 43.2 % (37-47); Hemoglobin 15.0 g/dL (12.0-15.0); Immature Granulocytes Count 0.660 X10^3/uL (0.0-0.0); Mean Corp Hgb Conc 34.7 g/dL (32-36); Mean Corpuscular Volume 88.0 fL (81-99); Mean Platelet Vol. 9.7 fl (6.2-12.0); NRBC Flagged by Analyzer 0 % (0-5); POSITIVE DIFFERENTIAL YES; POSITIVE MORPHOLOGY YES; Platelet Count 191 K/mm3 (150-450); RBC Distribution Width CV 12.7 % (11.6-14.6); RBC Distribution Width SD 41.2 fl (35.1-43.9); Red Blood Count 4.91 M/mm3 (4.2-5.4); White Blood Count 27.4 K/mm3 (4.4-11.0)
[2025-09-14 12:57] LABS: Color, Urine Yellow (Yellow); Glucose, Dipstick 50 mg/dl (Normal); Ketone-Dipstick Negative (Negative); Leukocyte Esterase-Dipstick 500 /ul (Negative); Nitrite-Dipstick Negative (Negative); Occult Blood-Urine 50 /ul (Negative); Protein-Dipstick 100 mg/dl (Negative); Specific Gravity, Urine 1.025 (1.002-1.030); Urine Bilirubin Dipstick Negative (Negative)
[2025-09-14 13:00] LABS: Prothrombin Time (Protime)PT. 14.8 SECONDS (11.7-14.9)
[2025-09-14 13:01] LABS: Partial Thromboplast Time 23.2 Seconds (24.1-36.2)
[2025-09-14 13:11] LABS: Mucous, Urine 1+ /hpf (<or=2+); Red Blood Cells-Urine 0-5 SEEN /hpf (0-5); Squamous Epithelial Cells - UA 5-10 SEEN /hpf (5-10)
[2025-09-14 13:18] LABS: Differential Comment SCANNED; Differential Indicated SCAN CRITERIA MET
[2025-09-14 13:35] LABS: AST(SGOT) 25 U/L (<=31); Alanine Aminotransfer ALT/SGPT 18 U/L (<=34); Albumin, Serum 3.7 g/dL (3.4-4.8); Alkaline Phosphatase 68 U/L (35-104); Anion Gap 16 (5-15); BETA-HYDROXYBUTYRATE 0.4 mmol/L (0.0-0.3); BUN 24 mg/dL (4-19); BUN/Creat Ratio 14.1 RATIO (10-20); Calcium,Total 9.4 mg/dL (7.6-11.0); Carbon Dioxide 22.1 mmol/L (21.0-32.0); Chloride 92 mmol/L (98-108); Estimated Creatinine Clearance 33.07 ml/min (50-250); Globulin 3.5 g/dL (2.2-4.2); Glucose 301 mg/dL (70-99); Potassium 4.1 mmol/L (3.3-5.1)
--- NOTE | 2025-09-14 15:48 | PCM.HP.STD ---
HPI - General General Date of Admission: 09/14/25 Date of Service: 09/14/25 Chief Complaint: Nausea/vomiting and malaise HPI Narrative LORENA CHIU, is a 65 F who presented to [facility] ED on 09/14/2025 with nausea/vomiting and malaise. Patient lives at home with her , has good functional status at baseline. Medical history significant for hypertension and type 2 diabetes mellitus. Notes that starting early yesterday morning she began to have nausea with episode of vomiting. She has had minimal p.o. intake and has felt dehydrated and noted that her urine output has decreased. In the ED she had a low-grade fever and had sinus tachycardia to the 120s, was otherwise normotensive and stable on room air at rest. Labs notable for WBC count 27, creatinine 1.7 (baseline around 1.0), lactic acid 4.1. UA with 500 leukocyte esterase, nitrates, 3+ bacteria. CT abdomen pelvis with IV contrast showed right perinephric stranding consistent with right-sided pyelonephritis. Given concern for urosepsis, patient was started on a 30 cc/kg IV fluid bolus and given IV antibiotics, and hospitalist was contacted for admission. I saw the patient at bedside in the ED, present. Patient was fatigued appearing and had mild chills noted during encounter, was otherwise laying back in bed and in no acute distress. She denied any UTI type symptoms. Had very mild right-sided flank pain noted. No other acute concerns currently. Will be admitted for further management. 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 Osteoarthritis of right knee Right knee pain Knee pain Hypertension Diabetes Home Medications ?Medication ?Instructions ?Recorded ?Last Taken ?Type cholecalciferol (vitamin D3) 25 1,000 unit PO DAILY 02/01/19 Unknown History mcg (1,000 unit) capsule multivitamin,[id number] 1 tab PO DAILY 02/01/19 Unknown History (Complete Multivitamin tablet) vitamin B complex (B 1 tab PO DAILY 02/01/19 Unknown History Complex-Vitamin B12 tablet) losartan 100 1 tab PO DAILY 09/14/25 Unknown History mg-hydrochlorothiazide 25 mg tablet metformin 1,000 mg tablet 1,000 mg PO QHS 09/14/25 Unknown History metformin 500 mg tablet 500 mg PO DAILY blood sugar 09/14/25 Unknown History tirzepatide 7.5 mg/0.5 mL 7.5 mg subcut QWEEK 09/14/25 Unknown History subcutaneous pen injector (Mounjaro) Allergy/AdvReac Type Severity Reaction Status Date / Time Food Allergies: Uncoded Allergy Vomiting Verified 09/14/25 11:55 Family History Mother Multiple sclerosis Hypertension Diabetes Father Hypertension Heart disease Diabetes Brother Diabetes Grandmother Diabetes Sister Breast cancer Surgical History Hx of LASIK H/O knee surgery Cyst of bone of right foot History of [facility] Social History Smoking Status: Never smoker alcohol intake: never substance use type: does not use caffeine: No what type of physical activity do you participate in: walking and other details: aqua exercises frequency: 3-4 times per week seatbelt use: always do you feel safe at home: Yes additional social history: [employer] ROS Constitutional Constitutional: Reports chills, fatigue, fever(s) and malaise Cardiovascular Cardiovascular: Denies chest pain Respiratory/Chest Respiratory/Chest: Denies shortness of breath at rest Gastrointestinal Gastrointestinal: Denies abdominal pain Genitourinary Genitourinary: Denies burning urination, dysuria, urinary frequency or urinary urgency Musculoskeletal Musculoskeletal: Reports myalgias; Denies arthralgias Neurologic Neurologic: Denies dizziness, focal weakness, headache(s), numbness or tingling Vital Signs Vital Signs Vital Signs: 09/14/25 11:51 09/14/25 12:15 09/14/25 12:31 Temperature 99.6 F H Temperature Source Oral Pulse Rate 128 H Respiratory Rate 20 H Respiratory Effort Normal Non-Labored Respiratory Pattern Tachypnea Blood Pressure 162/74 H Blood Pressure Mean 103 Pulse Ox 97 Oxygen Delivery Method Room Air Room Air 09/14/25 12:54 09/14/25 13:00 09/14/25 13:57 Temperature 98.5 F 98.4 F 98.4 F Temperature Source Oral Oral Pulse Rate 109 H 106 H 107 H Respiratory Rate 28 H 22 H 33 H Respiratory Effort Respiratory Pattern Blood Pressure 118/76 113/72 120/71 Blood Pressure Mean 90 85 87 Pulse Ox 100 97 97 Oxygen Delivery Method Room Air Room Air 09/14/25 14:00 09/14/25 15:00 09/14/25 15:21 Temperature 98.3 F 99 F 100 F H Temperature Source Oral Oral Oral Pulse Rate 107 H 115 H 120 H Respiratory Rate 28 H 31 H 27 H Respiratory Effort Respiratory Pattern Blood Pressure 101/81 H 127/70 H 122/69 H Blood Pressure Mean 87 85 86 Pulse Ox 97 100 98 Oxygen Delivery Method Room Air Room Air Weight Weight: 83.8 kg Body Mass Index (BMI) 34.3 Physical Exam Const alert, oriented x3 and no apparent distress Constitutional Narrative: Upper middle-aged female, class I obesity, fatigued appearing but otherwise laying back comfortably in bed, conversing normally, in no acute distress. General Appearance: cooperative and comfortable HEENT normocephalic, head/scalp atraumatic, hearing grossly normal bilaterally and nasal mucous membranes and turbinates normal HEENT Narrative: Dry mucous membranes. Eyes PERRL, EOMs intact bilaterally and conjunctivae normal Neck full ROM Chest inspection of chest normal Resp normal respiratory effort, normal air movement, no use of accessory muscles and clear to auscultation bilaterally Cardio no murmurs and peripheral pulses 2+ throughout Cardio Narrative: Tachycardic, regular rhythm. GI normal to inspection, nondistended, normoactive bowel sounds, soft to palpation, non-tender and non-distended Narrative: Mild right-sided CVA tenderness noted. Bladder / Kidney Exam: bladder normal to palpation Back/Spine normal ROM Extremity normal to inspection, full ROM and no pedal edema Skin no rashes or lesions noted Psych mental status grossly normal Results Lab / Micro Data 09/14/25 12:25 09/14/25 12:25 Labs: Laboratory Results - last 24 hr 09/14/25 12:17: Urine Color Yellow, Urine Clarity Sl. Cloudy, Urine pH 6.0, Ur Specific [place] 1.025, Urine Protein 100 H, Urine Glucose (UA) 50 H, Urine Ketones Negative, Urine Occult Blood 50 H, Urine Nitrite Negative, Urine Bilirubin Negative, Urine Urobilinogen Normal, Ur Leukocyte Esterase 500 H, Urine RBC 0-5 SEEN, Urine WBC 50-100 SEEN, Ur Squamous Epith Cells 5-10 SEEN, Urine Bacteria 3+, Urine Mucus 1+ 09/14/25 12:25: WBC 27.4 H, RBC 4.91, Hgb 15.0, Hct 43.2, MCV 88.0, MCH 30.5, MCHC 34.7, RDW Std Deviation 41.2, RDW Coeff of Laine 12.7, Plt Count 191, MPV 9.7, Immature Gran % (Auto) 2.400 H, Neut % (Auto) 83.9 H, Lymph % (Auto) 4.6 L, [place] % (Auto) 6.3, Eos % (Auto) 2.5, Baso % (Auto) 0.3, Absolute Neuts (auto) 23.0 H, Absolute Lymphs (auto) 1.26, Nucleated RBC % 0, Differential Comment SCANNED, PT 14.8, INR 1.1, APTT 23.2 L, Sodium 130 L, Potassium 4.1, Chloride 92 L, Carbon Dioxide 22.1, Anion Gap 16 H, BUN 24 H, Creatinine 1.71 H, Estim Creat Clear Calc 33.07 L, Est GFR (MDRD) Non-Af 33 L, BUN/Creatinine Ratio 14.1, Glucose 301 H, Lactic Acid 4.1 H*, Calcium 9.4, Total Bilirubin 0.94, AST 25, ALT 18, Alkaline Phosphatase 68, Total Protein 7.2, Albumin 3.7, Globulin 3.5, Albumin/Globulin Ratio 1.0, b-Hydroxybutyric mmol/L 0.4 H 09/14/25 13:44: POC Glucose 244 H ABG Data ABG results: ABG 09/14/25 12:47 Specimen Type LENI Sample Site Not entered VBG pH 7.45 H VBG pO2 40 VBG HCO3 22 VBG Total CO2 23 VBG O2 Sat (Calc) 78 H VBG Base Excess -2 L POC Mix VBG pCO2 Pt Tmp 32.1 L O2 Delivery Device Not entered Imaging Radiology Impression Chest X-Ray 09/14/25 11:59 IMPRESSION: Mild degree of increased markings at the lung bases suggestive of linear atelectasis. Reading Location: [id number] Abdomen/Pelvis CT 09/14/25 12:09 IMPRESSION: Multiple layering gallstones. 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 There is evidence of right perinephric stranding as well as inferior to the right kidney. Right-sided pyelonephritis should be ruled out. There is no evidence of obstruction. Reading Location: [id number] Assessment & Plan Assessment/Plan (1) Acute pyelonephritis: PLAN: Plan Patient is a 65-year-old female who presented to [facility] ED on 09/14/2025 with nausea/vomiting and malaise. 1. Acute pyelonephritis with concern for sepsis ? Admit under inpatient status to ICU. Lactic acid 4.1 on admit and met SIRS criteria but otherwise did not meet sepsis criteria. UA infectious appearing and CT abdomen pelvis with IV contrast showed right perinephric stranding consistent with right-sided pyelonephritis. Given dehydration with borderline hypotension and concern for sepsis, given 30 cc/kg of IV fluids on admit. Will treat with IV ceftriaxone for now. Follow-up urine culture and blood cultures. 2. FLORECITA ? Creatinine 1.71 on admit, baseline around 1.0. Presumed prerenal in setting of dehydration from infection above. Given heavy IV fluids on admit as above. Follow-up a.m. BMP and monitor urine output. 3. Mild hyponatremia ? Sodium 130 on admit, chloride 92. Presume secondary to dehydration in setting of infection above. Fluid resuscitation on admit as above. Follow-up a.m. sodium level. 4. Type 2 diabetes mellitus ? Blood glucose 301 on admit. However, A1c well-controlled at 6.5%. Prior A1c values were around 6 to 6.5% as well. Beta-hydroxybutyrate 0.4 on admit, patient not in DKA. Will treat with sliding scale insulin with meals while inpatient, adjust as needed. 5. Hypertension ? Holding home losartan?hydrochlorothiazide given infection with concern for sepsis as above. 6. Class I obesity ? BMI 34 on admit. Complicates hospital course and care. DVT prophylaxis: Heparin subcu CODE STATUS: Full code, verified Expected disposition: Home, TBD Total clinical time spent by myself addressing the patient's medical issues, reviewing all the data, and collaborating with patient's care team: 77 minutes. Charges/Coding Visit Charges Inpatient E&M: 40204 Init Hosp L3
[2025-09-14 16:47] LABS: Reflex Lactate? Y
[2025-09-14] MEDS: Heparin Injection (Vial) 5,000 UNIT/ML VIAL 5000 UNIT SC (21:27)
[2025-09-14] MEDS: MELATONIN 3 MG TABLET PO (22:58)
[2025-09-15] VITALS (13 sets, daily range): BP systolic 101–149; BP diastolic 48–79; PULSE 93–110; RESP 15–29; TEMP 36.7–37.6; O2SAT 91–96; BMI 36.8
[2025-09-15 03:33] LABS: Hematocrit 37.0 % (37-47); Hemoglobin 12.6 g/dL (12.0-15.0); Mean Corp Hgb Conc 34.1 g/dL (32-36); Mean Corpuscular Volume 89.2 fL (81-99); Mean Platelet Vol. 9.9 fl (6.2-12.0); Platelet Count 137 K/mm3 (150-450); RBC Distribution Width CV 12.8 % (11.6-14.6); RBC Distribution Width SD 42.1 fl (35.1-43.9); Red Blood Count 4.15 M/mm3 (4.2-5.4); White Blood Count 20.4 K/mm3 (4.4-11.0)
[2025-09-15 03:56] LABS: Anion Gap 9 (5-15); BUN 22 mg/dL (4-19); BUN/Creat Ratio 13.9 RATIO (10-20); Calcium,Total 8.0 mg/dL (7.6-11.0); Carbon Dioxide 23.1 mmol/L (21.0-32.0); Chloride 101 mmol/L (98-108); Estimated Creatinine Clearance 36.36 ml/min (50-250); Glucose 185 mg/dL (70-99); Potassium 3.7 mmol/L (3.3-5.1)
[2025-09-15] MEDS: Heparin Injection (Vial) 5,000 UNIT/ML VIAL 5000 UNIT SC ×3 (06:07→21:42)
[2025-09-15] MEDS: 0.9% Saline Lock 10 ML Syringe IV ×4 (06:09→21:51)
--- NOTE | 2025-09-15 07:48 | PN.HOSP_ITS ---
Reason for Visit
--- NOTE | 2025-09-15 07:48 | PCM.PN.HOSP ---
Reason for Visit Chief Complaint: Nausea/vomiting and malaise Objective Data Objective Data Vital Signs: Vital Signs Temp Pulse Resp BP Pulse Ox O2 Del Method O2 Flow Rate 98.5 F 99 22 H 117/58 L 92 Room Air 45 09/14/25 19:00 09/15/25 07:00 09/15/25 07:00 09/15/25 07:00 09/15/25 07:00 09/15/25 07:29 09/15/25 00:00 Oxygen Flow Rate (L/min) 45 Oxygen Delivery Method Room Air Weight: 194 lb 14.218 oz Body Mass Index (BMI) 36.8 Intake & Output: Intake and Output for Last 24 Hours 09/13/25 09/14/25 09/15/25 23:59 23:59 23:59 Intake Total 3700 / 3700 Output Total 1000 / 1000 Balance 3700 / 3300 -1000 / -1000 Lab / Micro Data 09/15/25 03:10 09/15/25 03:10 Labs: Laboratory Results - last 24 hr 09/14/25 12:17: Urine Color Yellow, Urine Clarity Sl. Cloudy, Urine pH 6.0, Ur Specific [place] 1.025, Urine Protein 100 H, Urine Glucose (UA) 50 H, Urine Ketones Negative, Urine Occult Blood 50 H, Urine Nitrite Negative, Urine Bilirubin Negative, Urine Urobilinogen Normal, Ur Leukocyte Esterase 500 H, Urine RBC 0-5 SEEN, Urine WBC 50-100 SEEN, Ur Squamous Epith Cells 5-10 SEEN, Urine Bacteria 3+, Urine Mucus 1+ 09/14/25 12:25: WBC 27.4 H, RBC 4.91, Hgb 15.0, Hct 43.2, MCV 88.0, MCH 30.5, MCHC 34.7, RDW Std Deviation 41.2, RDW Coeff of Laine 12.7, Plt Count 191, MPV 9.7, Immature Gran % (Auto) 2.400 H, Neut % (Auto) 83.9 H, Lymph % (Auto) 4.6 L, [place] % (Auto) 6.3, Eos % (Auto) 2.5, Baso % (Auto) 0.3, Absolute Neuts (auto) 23.0 H, Absolute Lymphs (auto) 1.26, Nucleated RBC % 0, Differential Comment SCANNED, PT 14.8, INR 1.1, APTT 23.2 L, Sodium 130 L, Potassium 4.1, Chloride 92 L, Carbon Dioxide 22.1, Anion Gap 16 H, BUN 24 H, Creatinine 1.71 H, Estim Creat Clear Calc 33.07 L, Est GFR (MDRD) Non-Af 33 L, BUN/Creatinine Ratio 14.1, Glucose 301 H, Hemoglobin A1c 6.5 H, Lactic Acid 4.1 H*, Calcium 9.4, Total Bilirubin 0.94, AST 25, ALT 18, Alkaline Phosphatase 68, Total Protein 7.2, Albumin 3.7, Globulin 3.5, Albumin/Globulin Ratio 1.0, b-Hydroxybutyric mmol/L 0.4 H 09/14/25 13:44: POC Glucose 244 H 09/14/25 17:49: POC Glucose 113 H 09/14/25 17:55: Lactic Acid 2.8 H* 09/14/25 21:22: POC Glucose 221 H 09/15/25 03:10: WBC 20.4 H, RBC 4.15 L, Hgb 12.6, Hct 37.0, MCV 89.2, MCH 30.4, MCHC 34.1, RDW Std Deviation 42.1, RDW Coeff of Laine 12.8, Plt Count 137 L, MPV 9.9, Sodium 133, Potassium 3.7, Chloride 101, Carbon Dioxide 23.1, Anion Gap 9, BUN 22 H, Creatinine 1.57 H, Estim Creat Clear Calc 36.36 L, Est GFR (MDRD) Non-Af 37 L, BUN/Creatinine Ratio 13.9, Glucose 185 H, Calcium 8.0 Micro: Microbiology 09/14/25 12:25 Blood Culture (Wb) - Right Hand Blood Culture - Preliminary 09/14/25 12:25 Blood Culture (Wb) - Anticubital Left Blood Culture - Preliminary ABG Data ABG results: ABG 09/14/25 12:47 Specimen Type LENI Sample Site Not entered VBG pH 7.45 H VBG pO2 40 VBG HCO3 22 VBG Total CO2 23 VBG O2 Sat (Calc) 78 H VBG Base Excess -2 L POC Mix VBG pCO2 Pt Tmp 32.1 L O2 Delivery Device Not entered Radiography Diagnostic Testing: Radiology Impression Chest X-Ray 09/14/25 11:59 IMPRESSION: Mild degree of increased markings at the lung bases suggestive of linear atelectasis. Reading Location: [id number] Abdomen/Pelvis CT 09/14/25 12:09 IMPRESSION: Multiple layering gallstones. 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 There is evidence of right perinephric stranding as well as inferior to the right kidney. Right-sided pyelonephritis should be ruled out. There is no evidence of obstruction. Reading Location: [id number] Physical Exam Narrative Patient had symptoms and started nausea and vomiting on Thursday evening about 1 day before it patient. She also had fever 102 Fahrenheit. Denies dysuria but has chronic increased frequency and urgency. She also has right-sided upper back pain and abdominal pain that is resolved. Uses CPAP at night Physical exam General: Alert, Oriented x3, Cooperative HEENT: Atraumatic, PERRLA, EOMI, Normocephalic. Oral: No Gingival or Mucosal Lesions/ Ulcerations Neck: Supple, No JVD, Negative Carotid Bruits Chest wall/Lungs: Air entry diminished in bilateral lung bases. No crepitation/rhonchi Cardiovascular: Regular rate and rhythm, Normal S1,S2, No M/G/R Abdomen: Bowel Sounds Present, Soft, Non Tender, Non-Distended : No dysuria. No renal angle tenderness. No suprapubic tenderness. Extremities: No edema, Capillary Refill Less than 3 Seconds Skin: No rashes, No breakdown Musculoskeletal: No Tenderness to Palpation of Joints or Extremities Neurological: Cranial nerves II-XII grossly intact, DTR 2+/4. No acute focal neurological deficit. Psych/Mental Status: Normal Affect, Appropriate. Assessment & Plan Assessment/Plan (1) Acute pyelonephritis: PLAN: Plan Patient is a 65-year-old female who presented to [facility] ED on 09/14/2025 with nausea/vomiting and malaise. 1.SIRS and Sepsis due to acute pyelonephritis: Patient met sepsis criteria with positive SIRS, lactic acidosis, borderline low BP, 96/57 and organ dysfunction, FLORECITA and hyponatremia ? Admit under inpatient status to ICU. Lactic acid 4.1 on admit= UA infectious appearing and CT abdomen pelvis with IV contrast showed right perinephric stranding consistent with right-sided pyelonephritis. Given dehydration with borderline hypotension and concern for sepsis, given 30 cc/kg of IV fluids on admit. Was started on IV ceftriaxone for now. 09/15: Patient had tachycardia, getting better. Blood pressure in normal range. No hypoxia. Was 45% Airvo last night. Blood culture x 2 aerobic and anaerobic bottle both growing gram-negative rods. Urine culture pending. On IV ceftriaxone continue. Sepsis ruled out 2. FLORECITA ? Creatinine 1.71 on admit, baseline around 1.0. Presumed prerenal in setting of dehydration from infection above. Given heavy IV fluids on admit as above. Follow-up a.m. BMP and monitor urine output. 09/15: Repeat creatinine 1.57, BUN 22, improving. 3. Mild hyponatremia ? Sodium 130 on admit, chloride 92. Presume secondary to dehydration in setting of infection above. Fluid resuscitation on admit as above. Follow-up a.m. sodium level. 09/15: Sodium 131 4. Type 2 diabetes mellitus ? Blood glucose 301 on admit. However, A1c well-controlled at 6.5%. Prior A1c values were around 6 to 6.5% as well. Beta-hydroxybutyrate 0.4 on admit, patient not in DKA. Will treat with sliding scale insulin with meals while inpatient, adjust as needed. 09/15: Glucose variable 113-180. 5. Hypertension ? Holding home losartan?hydrochlorothiazide given infection with concern for sepsis as above. Necessary to continue to hold. 6. Class I obesity ? BMI 34 on admit. Complicates hospital course and care. DVT prophylaxis: Heparin subcu CODE STATUS: Full code, verified Charges/Coding Visit Charges Inpatient E&M: 47694 Subs Hosp L3
[2025-09-15] MEDS: Ceftriaxone 2 GM in 0.9% Normal Saline (50mL MB+) 50 ML IV (09:44)
[2025-09-15] MEDS: Cholecalciferol (VIT D3) 25 MCG TABLET (1,000 UNITS) PO (09:45)
--- NOTE | 2025-09-15 10:02 | CASEMGMT ---
TANIKA GROSS Assessment Face to Face with patient for initial transition planning/care coordination assessment. TANIKA GROSS introduced self and role at [facility], pt voices understanding. Pt is A&Ox4 and is resting comfortably in bed and is calm. Care providers, pharmacy, and demographics verified. Admitting dx: Acute Pyelonephritis LACE Strata: 2 PCP: Aden Franco Specialists: [facility] Preferred Pharmacy:[facility] Insurance: MMO Prescription Benefit: Yes LNOK: Garry (H) Living Arrangements: Pt lives with her in a 3 story home with 2 steps to enter ADLs/IADLs: Indep Transportation: Self, DME: CPAP @ [facility] with no additional oxygen. BGM with sufficient supplies. Access to a rollator. HHC/SNF: Denies hx or needs. Pt has been to [facility] for OP therapy in the past Pt?s goal: Home Plan: Home no needs. Pt states that she feels safe returning home with her once medically ready. Per rounds, the pharmacists reports that the pt should switch to oral ATBs at [place]. Pt states that she swims and works out on her treadmill at home. Pt denies the need for OP Tx or HH. Pt denies further questions or concerns at this time. Brigida Powell RN, CM
[2025-09-16 04:20] VITALS: BP 135/64; PULSE 95; RESP 16; TEMP 36.6; O2SAT 100
[2025-09-16 06:00] VITALS: BMI 36.8
[2025-09-16] MEDS: Heparin Injection (Vial) 5,000 UNIT/ML VIAL 5000 UNIT SC ×3 (06:44→21:31)
[2025-09-16] MEDS: 0.9% Saline Lock 10 ML Syringe IV ×2 (07:58→21:31)
[2025-09-16 09:03] VITALS: BP 131/78; PULSE 91; RESP 17; TEMP 37; O2SAT 94
--- NOTE | 2025-09-16 09:03 | US_ITS ---
PROCEDURE: US/Kidney and Bladder
--- NOTE | 2025-09-16 09:09 | PN.HOSP_ITS ---
Reason for Visit
--- NOTE | 2025-09-16 09:09 | PCM.PN.HOSP ---
Reason for Visit Chief Complaint: Nausea/vomiting and malaise Objective Data Objective Data Vital Signs: Vital Signs Temp Pulse Resp BP Pulse Ox O2 Del Method O2 Flow Rate 98.6 F 91 17 131/78 H 94 Room Air 45 09/16/25 09:03 09/16/25 09:03 09/16/25 09:03 09/16/25 09:03 09/16/25 09:03 09/16/25 09:03 09/15/25 00:00 Oxygen Flow Rate (L/min) 45 Oxygen Delivery Method Room Air Weight: 195 lb 5.273 oz Body Mass Index (BMI) 36.8 Intake & Output: Intake and Output for Last 24 Hours 09/14/25 09/15/25 09/16/25 23:59 23:59 23:59 Intake Total 3700 / 3700 1290 / 1790 1000 / 1000 Output Total 1000 / 1000 Balance 3700 / 3300 290 / 790 1000 / 1000 Lab / Micro Data 09/15/25 03:10 09/15/25 03:10 Labs: Laboratory Results - last 24 hr 09/15/25 11:07: POC Glucose 208 H 09/15/25 16:22: POC Glucose 240 H 09/15/25 21:41: POC Glucose 222 H Micro: Microbiology 09/14/25 12:17 Urine, Clean Catch Urine Culture - Final Presumptive E. coli 09/14/25 12:25 Blood Culture (Wb) - Right Hand Blood Culture - Preliminary GNR lactose glue sprayer 09/14/25 12:25 Blood Culture (Wb) - Anticubital Left Blood Culture - Preliminary GNR lactose glue sprayer Physical Exam Narrative Patient had symptoms and started nausea and vomiting on Thursday evening about 1 day before it patient. She also had fever 102 Fahrenheit. Denies dysuria but has chronic increased frequency and urgency. She also has right-sided upper back pain and abdominal pain that is resolved. Uses CPAP at night Physical exam General: Alert, Oriented x3, Cooperative HEENT: Atraumatic, PERRLA, EOMI, Normocephalic. Oral: No Gingival or Mucosal Lesions/ Ulcerations Neck: Supple, No JVD, Negative Carotid Bruits Chest wall/Lungs: Air entry diminished in bilateral lung bases. No crepitation/rhonchi Cardiovascular: Regular rate and rhythm, Normal S1,S2, No M/G/R Abdomen: Bowel Sounds Present, Soft, Non Tender, Non-Distended : No dysuria. No renal angle tenderness. No suprapubic tenderness. Extremities: No edema, Capillary Refill Less than 3 Seconds Skin: No rashes, No breakdown Musculoskeletal: No Tenderness to Palpation of Joints or Extremities Neurological: Cranial nerves II-XII grossly intact, DTR 2+/4. No acute focal neurological deficit. Psych/Mental Status: Normal Affect, Appropriate. Assessment & Plan Assessment/Plan (1) Acute pyelonephritis: PLAN: Plan Patient is a 65-year-old female who presented to [facility] ED on 09/14/2025 with nausea/vomiting and malaise. 1.SIRS and Sepsis due to acute pyelonephritis: Patient met sepsis criteria with positive SIRS, lactic acidosis, borderline low BP, 96/57 and organ dysfunction, FLORECITA and hyponatremia ? Admit under inpatient status to ICU. Lactic acid 4.1 on admit= UA infectious appearing and CT abdomen pelvis with IV contrast showed right perinephric stranding consistent with right-sided pyelonephritis. Given dehydration with borderline hypotension and concern for sepsis, given 30 cc/kg of IV fluids on admit. Was started on IV ceftriaxone for now. 09/15: Patient had tachycardia, getting better. Blood pressure in normal range. No hypoxia. Was 45% Airvo last night. Blood culture x 2 aerobic and anaerobic bottle both growing gram-negative rods. Urine culture pending. On IV ceftriaxone continue. Sepsis ruled out 09/16: Renal ultrasound was done because of hypoenhancement reported on the CT scan. Right kidney 11.8 x 6.4 x 5.6 cm. Reported ill-defined mass 3.1 x 3 cm on the superior pole. No evidence of cyst, echogenic calculi or hydronephrosis. Normal right renal vascular pedicle. Left kidney 9.4 x 4.9 x 4.8 cm. Recommended short term interval repeat multiphasic to MRI for reevaluation after the infection is subsided. Advised follow-up with repeat imaging as an outpatient. Preliminary blood culture growing GNR lactose glue sprayer. Urine culture presumptive E. coli, sensitive to ceftriaxone. Patient afebrile since 09/14, 3 PM. 2. FLORECITA ? Creatinine 1.71 on admit, baseline around 1.0. Presumed prerenal in setting of dehydration from infection above. Given heavy IV fluids on admit as above. Follow-up a.m. BMP and monitor urine output. 09/15: Repeat creatinine 1.57, BUN 22, improving. 09/16: Labs was ordered, pending 3. Mild hyponatremia ? Sodium 130 on admit, chloride 92. Presume secondary to dehydration in setting of infection above. Fluid resuscitation on admit as above. Follow-up a.m. sodium level. 09/15: Sodium 131 4. Type 2 diabetes mellitus ? Blood glucose 301 on admit. However, A1c well-controlled at 6.5%. Prior A1c values were around 6 to 6.5% as well. Beta-hydroxybutyrate 0.4 on admit, patient not in DKA. Will treat with sliding scale insulin with meals while inpatient, adjust as needed. 09/15: Glucose variable 113-180. 5. Hypertension ? Holding home losartan?hydrochlorothiazide given infection with concern for sepsis as above. Necessary to continue to hold. 6. Class I obesity ? BMI 34 on admit. Complicates hospital course and care. DVT prophylaxis: Heparin subcu CODE STATUS: Full code, verified Microbiology Past 72 Hours 09/14/25 12:17 Urine, Clean Catch Urine Culture - Final Presumptive E. coli 09/14/25 12:25 Blood Culture (Wb) - Right Hand Blood Culture - Preliminary GNR lactose glue sprayer 09/14/25 12:25 Blood Culture (Wb) - Anticubital Left Blood Culture - Preliminary GNR lactose glue sprayer Laboratory Results 09/15/25 11:07: POC Glucose 208 H 09/15/25 16:22: POC Glucose 240 H 09/15/25 21:41: POC Glucose 222 H Charges/Coding Visit Charges Inpatient E&M: 18912 Subs Hosp L2
[2025-09-16] MEDS: Cholecalciferol (VIT D3) 25 MCG TABLET (1,000 UNITS) PO (10:32)
[2025-09-16] MEDS: Ceftriaxone 2 GM in 0.9% Normal Saline (50mL MB+) 50 ML IV (11:32)
[2025-09-16 12:03] LABS: Hematocrit 34.6 % (37-47); Hemoglobin 11.9 g/dL (12.0-15.0); Immature Granulocytes Count 0.060 X10^3/uL (0.0-0.0); Mean Corp Hgb Conc 34.4 g/dL (32-36); Mean Corpuscular Volume 87.4 fL (81-99); Mean Platelet Vol. 9.8 fl (6.2-12.0); NRBC Flagged by Analyzer 0 % (0-5); Platelet Count 118 K/mm3 (150-450); RBC Distribution Width CV 12.7 % (11.6-14.6); RBC Distribution Width SD 40.8 fl (35.1-43.9); Red Blood Count 3.96 M/mm3 (4.2-5.4); White Blood Count 9.2 K/mm3 (4.4-11.0)
[2025-09-16 12:36] LABS: Anion Gap 10 (5-15); BUN 18 mg/dL (4-19); BUN/Creat Ratio 14.6 RATIO (10-20); Calcium,Total 8.8 mg/dL (7.6-11.0); Carbon Dioxide 22.3 mmol/L (21.0-32.0); Chloride 99 mmol/L (98-108); Estimated Creatinine Clearance 46.26 ml/min (50-250); Glucose 260 mg/dL (70-99); Potassium 3.6 mmol/L (3.3-5.1)
[2025-09-16 15:10] VITALS: BP 112/64; PULSE 93; RESP 16; TEMP 38; O2SAT 94
[2025-09-16 21:30] VITALS: BP 124/72; PULSE 86; RESP 18; TEMP 36.6; O2SAT 96
--- NOTE | 2025-09-16 21:35 | EKG12_ITS ---
Test Reason : CHEST PAIN
[2025-09-16 22:40] LABS: Troponin T High Sensitivity 9 ng/L (<=14)
[2025-09-17 03:00] VITALS: BP 115/75; PULSE 86; RESP 18; TEMP 36.6; O2SAT 96
[2025-09-17 04:53] LABS: Anion Gap 11 (5-15); BUN 18 mg/dL (4-19); BUN/Creat Ratio 15.1 RATIO (10-20); Calcium,Total 8.5 mg/dL (7.6-11.0); Carbon Dioxide 21.6 mmol/L (21.0-32.0); Chloride 102 mmol/L (98-108); Estimated Creatinine Clearance 49.82 ml/min (50-250); Glucose 154 mg/dL (70-99); Potassium 3.7 mmol/L (3.3-5.1)
[2025-09-17 09:00] VITALS: BP 130/72; PULSE 86; RESP 17; TEMP 37.3; O2SAT 95
--- NOTE | 2025-09-17 09:38 | DCINST_ITS ---
Discharge Instructions
--- NOTE | 2025-09-17 09:38 | PCM.DC ---
Discharge Instructions DC O2, CPAP, BIPAP needs Home O2 Discharge instructions: No Follow Up Care Test Results: Test results from this visit will be discussed in further detail at your follow-up appointment, if applicable. Discharge Plan Admission Admit Date/Time: 09/14/25 15:58 Attending Provider: Herman Layton Primary Care Provider: Aden Franco Consulting Providers: Neville Alonzo Discharge Orders/Prescriptions Prescriptions: New amoxicillin 500 mg tablet 500 mg PO TID 7 Days Qty: 21 0RF Continued Complete Multivitamin tablet 1 tab PO DAILY cholecalciferol (vitamin D3) 1,000 unit capsule 1,000 unit PO DAILY vitamin B complex [B Complex-Vitamin B12] tablet 1 tab PO DAILY losartan-hydrochlorothiazide 100-25 mg tablet 1 tab PO DAILY Mounjaro 7.5 mg/0.5 mL pen injector 7.5 mg SUBCUT QWEEK Patient Comments: [NO ORIGINAL SIG] Held metformin 500 mg tablet 500 mg PO DAILY Hold Instructions: Hold for 2 days. Patient Comments: takes in am metformin 1,000 mg tablet 1,000 mg PO QHS Hold Instructions: Hold for 2 days Referrals / Follow Up: Elena Velásquez MD [Med Staff - Active Staff, Urology] - Within 2 Weeks Referral Note: 3.1 x 3 cm ill-defined mass in superior pole of right kidney. Right pyelonephritis with E. coli bacteremia Aden Franco DO [Primary Care Provider, Family Practice] Disposition Disposition (needs filled in before D/C Order can be placed): Home, Self Care
[2025-09-17] MEDS: Ceftriaxone 2 GM in 0.9% Normal Saline (50mL MB+) 50 ML IV (10:04)
[2025-09-17] MEDS: Cholecalciferol (VIT D3) 25 MCG TABLET (1,000 UNITS) PO (10:05)
[2025-09-17] MEDS: 0.9% Normal Saline (250mL Bag) 250 ML 15 ML IV (10:06)
--- NOTE | 2025-09-17 10:55 | PCM.DC.SUM ---
Providers Date of Admission: 09/14/25 Primary Care Physician: Dr. Aden Franco DO Reason For Visit: SEPSIS DUE TO ACUTE PYELONEPHRITIS Diagnosis Discharge Diagnosis (1) Acute pyelonephritis: Status: Acute Code(s): N10 - Acute pyelonephritis Plan Patient is a 65-year-old female who presented to [facility] ED on 09/14/2025 with nausea/vomiting and malaise. 1.SIRS and Sepsis due to acute pyelonephritis: Patient met sepsis criteria with positive SIRS, lactic acidosis, borderline low BP, 96/57 and organ dysfunction, FLORECITA and hyponatremia ? Admit under inpatient status to ICU. Lactic acid 4.1 on admit= UA infectious appearing and CT abdomen pelvis with IV contrast showed right perinephric stranding consistent with right-sided pyelonephritis. Given dehydration with borderline hypotension and concern for sepsis, given 30 cc/kg of IV fluids on admit. Was started on IV ceftriaxone for now. 09/15: Patient had tachycardia, getting better. Blood pressure in normal range. No hypoxia. Was 45% Airvo last night. Blood culture x 2 aerobic and anaerobic bottle both growing gram-negative rods. Urine culture pending. On IV ceftriaxone continue. Sepsis ruled out 09/16: Renal ultrasound was done because of hypoenhancement reported on the CT scan. Right kidney 11.8 x 6.4 x 5.6 cm. Reported ill-defined mass 3.1 x 3 cm on the superior pole. No evidence of cyst, echogenic calculi or hydronephrosis. Normal right renal vascular pedicle. Left kidney 9.4 x 4.9 x 4.8 cm. Recommended short term interval repeat multiphasic to MRI for reevaluation after the infection is subsided. Advised follow-up with repeat imaging as an outpatient. 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 Urine culture presumptive E. coli, sensitive to ceftriaxone. Patient afebrile since 09/14, 3 PM. 09/17: Patient had low-grade fever 99.2 99.6 and 90.4 yesterday last 1, more than 18 [address]iscuss[address] with ID Dr. Villalta. Agree with discharging on 1 more week of amoxicillin 500 mg 3 times daily. Patient had 4 days of IV ceftriaxone 2 g daily. As mentioned above about the right kidney ill-defined mass, referred to Dr. Wyneski in the office in 2 to 3 weeks. Explained to the patient and her about the antibiotic and the discharge plan and follow-up with urologist Dr. Velásquez 2. FLORCEITA ? Creatinine 1.71 on admit, baseline around 1.0. Presumed prerenal in setting of dehydration from infection above. Given heavy IV fluids on admit as above. Follow-up a.m. BMP and monitor urine output. 09/15: Repeat creatinine 1.57, BUN 22, improving. 09/16: Creatinine 1.26 09/17: BUN/creatinine 18/1.17. FLORECITA resolved. 3. Mild hyponatremia ? Sodium 130 on admit, chloride 92. Presume secondary to dehydration in setting of infection above. Fluid resuscitation on admit as above. Follow-up a.m. sodium level. 09/15: Sodium 131 4. Type 2 diabetes mellitus ? Blood glucose 301 on admit. However, A1c well-controlled at 6.5%. Prior A1c values were around 6 to 6.5% as well. Beta-hydroxybutyrate 0.4 on admit, patient not in DKA. Will treat with sliding scale insulin with meals while inpatient, adjust as needed. 09/15: Glucose variable 113-180. 5. Hypertension ? Holding home losartan?hydrochlorothiazide given infection with concern for sepsis as above. Necessary to continue to hold. 6. Class I obesity ? BMI 34 on admit. Complicates hospital course and care. DVT prophylaxis: Heparin subcu CODE STATUS: Full code, verified Medications at Discharge Home Medications cholecalciferol (vitamin D3) 25 mcg (1,000 unit) capsule 1,000 unit PO DAILY 02/01/19 multivitamin,[id number]-[id number] (Complete Multivitamin tablet) 1 tab PO DAILY 02/01/19 vitamin B complex (B Complex-Vitamin B12 tablet) 1 tab PO DAILY 02/01/19 losartan 100 mg-hydrochlorothiazide 25 mg tablet 1 tab PO DAILY 09/14/25 metformin 1,000 mg tablet 1,000 mg PO QHS 09/14/25 Held on 09/17/25. Instructions: Hold for 2 days metformin 500 mg tablet 500 mg PO DAILY blood sugar 09/14/25 Held on 09/17/25. Instructions: Hold for 2 days. 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 coli Laboratory Results 09/16/25 06:41: POC Glucose 161 H 09/16/25 11:55: WBC 9.2, RBC 3.96 L, Hgb 11.9 L, Hct 34.6 L, MCV 87.4, MCH 30.1, MCHC 34.4, RDW Std Deviation 40.8, RDW Coeff of Laine 12.7, Plt Count 118 L, MPV 9.8, Immature Gran % (Auto) 0.700, Neut % (Auto) 81.0 H, Lymph % (Auto) 9.0 L, [place] % (Auto) 7.2, Eos % (Auto) 1.7, Baso % (Auto) 0.4, Absolute Neuts (auto) 7.5, Absolute Lymphs (auto) 0.83, Nucleated RBC % 0, Sodium 131 L, Potassium 3.6, Chloride 99, Carbon Dioxide 22.3, Anion Gap 10, BUN 18, Creatinine 1.26 H, Estim Creat Clear Calc 46.26 L, Est GFR (MDRD) Non-Af 48 L, BUN/Creatinine Ratio 14.6, Glucose 260 H, Calcium 8.8 09/16/25 16:30: POC Glucose 197 H 09/16/25 21:30: POC Glucose 172 H 09/16/25 22:10: Troponin T High Sens 9 09/17/25 03:55: Sodium 134, Potassium 3.7, Chloride 102, Carbon Dioxide 21.6, Anion Gap 11, BUN 18, Creatinine 1.17, Estim Creat Clear Calc 49.82 L, Est GFR (MDRD) Non-Af 52 L, BUN/Creatinine Ratio 15.1, Glucose 154 H, Calcium 8.5 Clinical Impression(s) from Imaging Studies Chest X-Ray 09/14/25 11:59 IMPRESSION: Mild degree of increased markings at the lung bases suggestive of linear atelectasis. Reading Location: [id number] Abdomen/Pelvis CT 09/14/25 12:09 IMPRESSION: Multiple layering gallstones. 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 There is evidence of right perinephric stranding as well as inferior to the right kidney. Right-sided pyelonephritis should be ruled out. There is no evidence of obstruction. Reading Location: [facility] Renal Ultrasound 09/16/25 09:03 IMPRESSION: 3.1 cm ill defined right renal mass. Consider short interval repeat multiphase CT or MRI for re-evaluation as these findings can be seen in infection as well as neoplasm. Reading Location: [id number] Physical Exam Narrative Patient had upper mid back pain that lasted shortly after food probably air/food in the esophagus. She is fine. Wants to go home. Physical exam General: Alert, Oriented x3, Cooperative HEENT: Atraumatic, PERRLA, EOMI, Normocephalic. Oral: No Gingival or Mucosal Lesions/ Ulcerations Neck: Supple, No JVD, Negative Carotid Bruits Chest wall/Lungs: Air entry diminished in bilateral lung bases. No crepitation/rhonchi Cardiovascular: Regular rate and rhythm, Normal S1,S2, No M/G/R Abdomen: Bowel Sounds Present, Soft, Non Tender, Non-Distended : No dysuria. No renal angle tenderness. No suprapubic tenderness. Extremities: No edema, Capillary Refill Less than 3 Seconds Skin: No rashes, No breakdown Musculoskeletal: No acute tenderness of thoracic or lumbar spine. No Tenderness to Palpation of Joints or Extremities Neurological: Cranial nerves II-XII grossly intact, DTR 2+/4. No acute focal neurological deficit. Psych/Mental Status: Normal Affect, Appropriate. Weight / BMI Weight Weight: 195 lb 5.273 oz Body Mass Index (BMI) 36.8 ABG / Lab / Microbiology Data 09/16/25 11:55 09/17/25 03:55 Laboratory: Laboratory Results - last 24 hr 09/16/25 06:41: POC Glucose 161 H 09/16/25 11:55: WBC 9.2, RBC 3.96 L, Hgb 11.9 L, Hct 34.6 L, MCV 87.4, MCH 30.1, MCHC 34.4, RDW Std Deviation 40.8, RDW Coeff of Laine 12.7, Plt Count 118 L, MPV 9.8, Immature Gran % (Auto) 0.700, Neut % (Auto) 81.0 H, Lymph % (Auto) 9.0 L, [place] % (Auto) 7.2, Eos % (Auto) 1.7, Baso % (Auto) 0.4, Absolute Neuts (auto) 7.5, Absolute Lymphs (auto) 0.83, Nucleated RBC % 0, Sodium 131 L, Potassium 3.6, Chloride 99, Carbon Dioxide 22.3, Anion Gap 10, BUN 18, Creatinine 1.26 H, Estim Creat Clear Calc 46.26 L, Est GFR (MDRD) Non-Af 48 L, BUN/Creatinine Ratio 14.6, Glucose 260 H, Calcium 8.8 09/16/25 16:30: POC Glucose 197 H 09/16/25 21:30: POC Glucose 172 H 09/16/25 22:10: Troponin T High Sens 9 09/17/25 03:55: Sodium 134, Potassium 3.7, Chloride 102, Carbon Dioxide 21.6, Anion Gap 11, BUN 18, Creatinine 1.17, Estim Creat Clear Calc 49.82 L, Est GFR (MDRD) Non-Af 52 L, BUN/Creatinine Ratio 15.1, Glucose 154 H, Calcium 8.5 Microbiology: Microbiology 09/14/25 12:25 Blood Culture (Wb) - Right Hand 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 coli D/C Instructions Discharge Activity: Return to Normal Activity Weight Bearing Status: Weight bearing as tolerated Call your doctor if you observe: Fever of 101 or Higher, Coldness, Increased Pain, Numbness or Tingling, Change in Color, Inability to urinate, Inability to have a bowel movement, Shortness of breath, Dizziness, Fainting spells, Swelling in the ankles, Chest pain, Prolonged hiccupping, Increased palpitations (irregular heartbeat) and Calf discomfort DC O2, CPAP, BIPAP Needs Home O2 Discharge instructions: No When: IN 2 WEEKS Meaningful Use Info Meaningful Use Meaningful Use Diagnoses (Choose all that apply): None applicable Discharge Plan Admission Admit Date/Time: 09/14/25 15:58 Attending Provider: Herman Layton Primary Care Provider: Aden Franco Consulting Providers: Neville Alonzo Discharge Orders/Prescriptions Prescriptions: New amoxicillin 500 mg tablet 500 mg PO TID 7 Days Qty: 21 0RF Continued Complete Multivitamin tablet 1 tab PO DAILY cholecalciferol (vitamin D3) 1,000 unit capsule 1,000 unit PO DAILY vitamin B complex [B Complex-Vitamin B12] tablet 1 tab PO DAILY losartan-hydrochlorothiazide 100-25 mg tablet 1 tab PO DAILY Mounjaro 7.5 mg/0.5 mL pen injector 7.5 mg SUBCUT QWEEK Patient Comments: [NO ORIGINAL SIG] Held metformin 500 mg tablet 500 mg PO DAILY Hold Instructions: Hold for 2 days. Patient Comments: takes in am metformin 1,000 mg tablet 1,000 mg PO QHS Hold Instructions: Hold for 2 days Referrals / Follow Up: Elena Velásquez MD [Med Staff - Active Staff, Urology] - Within 2 Weeks Referral Note: 3.1 x 3 cm ill-defined mass in superior pole of right kidney. Right pyelonephritis with E. coli bacteremia Aden Franco DO [Primary Care Provider, Family Practice] Disposition Disposition (needs filled in before D/C Order can be placed): Home, Self Care Charges/Coding Visit Charges Inpatient E&M: 09646 Disch Hosp >30min
== END 2025-09-17 13:10 | disposition home or self-care (01) | DRG 690 ==
LOC: ED 15:51 → ICU 16:13 → PCU 09-15 18:08
PROVIDERS: Family Medicine; Admitting Provider Hospitalist; Emergency Provider Emergency Medicine; PCP Family Medicine; Visit Provider Internal Medicine
DX: N10 Acute pyelonephritis (principal); E87.20 Acidosis, unspecified; E87.1 Hypo-osmolality and hyponatremia; E11.65 Type 2 diabetes mellitus with hyperglycemia; I10 Essential (primary) hypertension; E66.811 Obesity, class 1; N17.9 Acute kidney failure, unspecified; Z83.3 Family history of diabetes mellitus; Z79.899 Other long term (current) drug therapy; Z68.34 Body mass index [BMI] 34.0-34.9, adult; Z79.84 Long term (current) use of oral hypoglycemic drugs; Z79.85 Long-term (current) use of injectable non-insulin antidiabetic drugs
CPT/HCPCS: 36415; 71046; 74177; 76770; 80048; 80053; 81001; 82010; 82803; 82962; 83036; 83605; 84484; 85025; 85027; 85610; 85730; 87040; 87077; 87086; 87088; 87186; 93005; 94668; 99285; Q9967; A4216; J0696; J2405

== ENCOUNTER → 2025-11-06 | Outpatient (CLI) | payer OTHER, SELFPAY ==
--- NOTE | 2025-11-06 08:21 | CT_ITS ---
PROCEDURE: CT ABD/PELVIS W/WO CONTRAST 11/06/2025 REASON FOR EXAM: ABNORMAL RIGHT RENAL CORTEX, NEOPLASIA VS PYELONEP TECHNIQUE: Procedure Code: [id number] Modality: CT Procedure: CT ABD/PELVIS W/WO CONTRAST Coronal and Sagittal reconstruction series were provided. CONTRAST: Isovue 370 VOLUME: 100 mL One or more dose reduction techniques were used (e.g., Automated exposure control, adjustment of the mA and/or kV according to patient size, use of iterative reconstruction technique. RADIATION DOSE SUMMARY: CTDlvol: 72.55 mGy DLP: 3220.08 mGycm COMPARISON: 09/14/2025, ultrasound from 09/16/2025 FINDINGS: Lung bases: Mild dependent atelectasis Liver: Liver is unremarkable aside from a 1.5 cm hemangioma in the right lobe of the liver. Gallbladder: Multiple gallstones without CT evidence of cholecystitis Spleen: Normal size. Pancreas: Normal size without evidence of mass surrounding inflammation or ductal dilation. Adrenals: Unremarkable Kidneys: No obstructive uropathy, or suspicious solid renal lesion. Previously noted inflammatory stranding around the periphery of the right kidney has nearly resolved. There is significant improvement since the previous study. There is also now normal enhancement of the right kidney and no discrete lesion is identified the area of hypoattenuation previously described is no longer visualized. Findings consistent with resolution of the previously noted inflammatory process Bladder: Incompletely distended but unremarkable Reproductive Organs: Surgically absent Bowel: No CTA evidence of obstruction or acute inflammation, there some fat deposition within erazo of the colon which can be seen with chronic inflammatory bowel disease. Appendix: Normal appendix seen on coronal recon images 63-70 Lymph nodes: No suspicious mesenteric or retroperitoneal adenopathy Vasculature: Mild diffuse atherosclerotic calcifications are noted. Peritoneum / Retroperitoneum: No free fluid or air Bones: Degenerative bony changes CT/CT Abd/Pelvis W/WO Contrast IMPRESSION: CT scan from 09/14/2025 showed changes in the right kidney consistent with pyel onephritis. Those changes have significantly improved/nearly resolved. There is a minimal amount of persistent inflammatory stranding around the right kidney but the right kidney enhances normally without evidence of solid mass lesion or hypoattenuati on. Left kidney is unremarkable. Stable 1.5 cm hemangioma in the right lobe of the liver Cholelithiasis, no CT evidence of acute cholecystitis No free intraperitoneal fluid, air, or suspicious adenopathy Degenerative bony changes Reading Location: [id number]
[2025-11-06 08:51] LABS: CREATININE FINGERSTICK 1.1 mg/dL (0.55-1.02); EGFR FINGERSTICK 54.0000 mL/min (>60)
== END | disposition home or self-care (01) ==
LOC: CT 08:18
PROVIDERS: PCP Family Medicine; Referring Provider Urology; Visit Provider Urology
DX: R93.89 Abnormal findings on diagnostic imaging of other specified body structures (principal); N10 Acute pyelonephritis
CPT/HCPCS: 74178; Q9967